=== PATIENT | female | born 1955 | race Caucasian/White ===

== ENCOUNTER 2019-03-01 14:54 | Emergency (ER) | payer OTHER ==
[~2019-03-01] VITALS: Ht 162.6 cm; Wt 98.4 kg
[2019-03-01 14:59] VITALS: BP 189/99
[2019-03-01 15:40] LABS: BASOPHILS % (AUTO) 0.5 % (0.0-2.0); EOSINOPHILS # (AUTO) 0.2 K/uL (0-0.4); EOSINOPHILS % (AUTO) 2.4 % (0.0-4.0); HEMATOCRIT 43.8 % (36-48); HEMOGLOBIN 14.7 g/dL (12.0-16.0); LYMPHOCYTES # (AUTO) 2.2 K/uL (2.5-16.5); LYMPHOCYTES % (AUTO) 29.3 % (20.5-51.1); MEAN CORPUSCULAR HEMOGLOBIN 29 pg (27-31); MEAN CORPUSCULAR HGB CONC 34 g/dL (33-37); MEAN CORPUSCULAR VOLUME 87.7 fL (80-94); MONOCYTES # (AUTO) 0.6 K/uL (0.8-1.0); MONOCYTES % (AUTO) 7.6 % (1.7-9.3); NEUTROPHILS # (AUTO) 4.5 K/uL (1.8-7.7); NEUTROPHILS % (AUTO) 60.2 % (42.2-75.2); PLATELET COUNT (AUTO) 337 K/uL (140-450); WHITE BLOOD COUNT (AUTO) 7.4 K/uL (4.8-10.8)
[2019-03-01 15:47] LABS: ANION GAP 11.6 (8-16); CARBON DIOXIDE 31.3 mmol/L (21-32); CREATININE 0.7 mg/dL (0.6-1.3); POTASSIUM 3.9 mmol/L (3.5-5.1)
[2019-03-01] MEDS ORDERED: METO25TE2 PO (15:58)
[2019-03-01] MEDS ORDERED: HYDR-39 PO (15:58)
[2019-03-02] MEDS ORDERED: ASPIRIN 325 MG TAB ONE (07:51)
[2019-03-02] MEDS: ASPIRIN 325 MG TABEC PO SCH (08:02)
[2019-03-02] MEDS ORDERED: HYDROCHLOROTHIAZIDE 25 MG TAB PO SCH (10:05)
[2019-03-02] MEDS ORDERED: LISINOPRIL 20 MG TAB PO SCH (10:05)
[2019-03-02] MEDS: LISINOPRIL 20 MG TAB PO ONE (10:37)
[2019-03-02] MEDS: HYDROCHLOROTHIAZIDE 25 MG TAB PO ONE (10:37)
[2019-03-02 12:00] VITALS: BP 150/75
== END 2019-03-02 12:00 | disposition short-term general hospital (02) ==
LOC: MED 14:54
DX: I63.9 Cerebral infarction, unspecified (principal); I10 Essential (primary) hypertension; Z79.899 Other long term (current) drug therapy
CPT/HCPCS: 36415; 70450; 80048; 82948; 84484; 85025; 93005; 99285

== ENCOUNTER 2020-12-05 13:22 | Emergency (ER) | payer BC, OTHER ==
[~2020-12-05] VITALS: Ht 165.1 cm; Wt 111.1 kg
[~2020-12-05 13:22] MED LIST: HYDR-39 PO; METO25TE2 PO
[2020-12-05 13:27] VITALS: BP 125/107
[2020-12-05] MEDS: NACL 0.9% 1,000 ML IV ONE (13:59)
[2020-12-05 14:07] LABS: BASOPHILS # (AUTO) 0.1 K/uL (0.00-0.22); BASOPHILS % (AUTO) 1.1 % (0.0-2.0); EOSINOPHILS # (AUTO) 0.2 K/uL (0-0.4); HEMATOCRIT 42.1 % (36-48); HEMOGLOBIN 14.1 g/dL (12.0-16.0); LYMPHOCYTES # (AUTO) 2.4 K/uL (2.5-16.5); LYMPHOCYTES % (AUTO) 29.2 % (20.5-51.1); MEAN CORPUSCULAR HEMOGLOBIN 29 pg (27-31); MEAN CORPUSCULAR HGB CONC 33 g/dL (33-37); MONOCYTES # (AUTO) 0.7 K/uL (0.8-1.0); MONOCYTES % (AUTO) 8.8 % (1.7-9.3); NEUTROPHILS # (AUTO) 4.7 K/uL (1.8-7.7); NEUTROPHILS % (AUTO) 57.9 % (42.2-75.2); PLATELET COUNT (AUTO) 334 K/uL (140-450); RED BLOOD CELL COUNT(AUTO) 4.84 MIL/uL (4.20-5.40); RED CELL DISTRIBUTION WIDTH 14.5 % (11.6-13.7); WHITE BLOOD COUNT (AUTO) 8.1 K/uL (4.8-10.8)
[2020-12-05 14:23] LABS: ALBUMIN 3.7 g/dL (3.4-5.0); ANION GAP 9.5 (8-16); CARBON DIOXIDE 30.3 mmol/L (21-32); CREATININE 0.9 mg/dL (0.6-1.3); POTASSIUM 3.8 mmol/L (3.5-5.1); TOTAL BILIRUBIN 0.5 mg/dL (0.0-1.0)
[2020-12-05] MEDS ORDERED: FLUO20TA35 PO (14:34)
[2020-12-05 14:53] VITALS: BP 125/107
== END 2020-12-05 14:50 | disposition home or self-care (01) ==
LOC: MED 13:22
DX: F32.9 Major depressive disorder, single episode, unspecified (principal); R42 Dizziness and giddiness; R53.1 Weakness; E11.9 Type 2 diabetes mellitus without complications; I10 Essential (primary) hypertension; Z79.899 Other long term (current) drug therapy
CPT/HCPCS: 36415; 80053; 85025; 93005; 96360; 99284; J7030

== ENCOUNTER 2022-01-05 15:38 | Inpatient (IN) | payer BC ==
[~2022-01-05] VITALS: Ht 165.1 cm; Wt 112.1 kg
[~2022-01-05 15:38] MED LIST changes: +FLUO20TA35 PO; +HYDR-2853 PO; -HYDR-39 PO
[2022-01-05 15:41] VITALS: BP 134/86
--- NOTE | 2022-01-05 15:48 | NUR ---
[facility] ALS TAKEN TO BED 2
--- NOTE | 2022-01-05 16:24 | NUR ---
66 y/o female, c/o increased sob, pt states she finished her current medications (azithromycin) for pneumonia which she was dx with 1 week ago. pt states her s/s were improving and today worsened. ems reports 02 saturation was 70% on room air. skin is pink/warm/dry. a&o x4 with even and steady gait. lungs wheezing bl, heart rate even and regular. patient positioned for comfort. hob elevated. bed down. ermd made aware of pt. pmh: pnuemonia, dm2, stroke 2019, anxiety, htn nka med:
--- NOTE | 2022-01-05 16:26 | NUR ---
zane swabbed at this time
[2022-01-05 16:31] LABS: BASOPHILS % (AUTO) 0.1 % (0.0-2.0); EOSINOPHILS % (AUTO) 0.1 % (0.0-4.0); HEMATOCRIT 35.7 % (36-48); HEMOGLOBIN 11.1 g/dL (12.0-16.0); LYMPHOCYTES # (AUTO) 1.3 K/uL (2.5-16.5); LYMPHOCYTES % (AUTO) 6.7 % (20.5-51.1); MEAN CORPUSCULAR HEMOGLOBIN 27 pg (27-31); MEAN CORPUSCULAR HGB CONC 31 g/dL (33-37); MEAN CORPUSCULAR VOLUME 87.7 fL (80-94); MONOCYTES # (AUTO) 0.8 K/uL (0.8-1.0); MONOCYTES % (AUTO) 4.1 % (1.7-9.3); NEUTROPHILS # (AUTO) 17.1 K/uL (1.8-7.7); PLATELET COUNT (AUTO) 277 K/uL (140-450); RED BLOOD CELL COUNT(AUTO) 4.07 MIL/uL (4.20-5.40); RED CELL DISTRIBUTION WIDTH 14.5 % (11.6-13.7); WHITE BLOOD COUNT (AUTO) 19.2 K/uL (4.8-10.8)
[2022-01-05 16:57] LABS: ALBUMIN 2.5 g/dL (3.4-5.0); ANION GAP 22.1 (8-16); CARBON DIOXIDE 20.4 mmol/L (21-32); CREATININE 1.8 mg/dL (0.6-1.3); POTASSIUM 4.5 mmol/L (3.5-5.1); TOTAL BILIRUBIN 1.4 mg/dL (0.0-1.0)
[2022-01-05] MEDS ORDERED: ATOR40TA40 PO (17:29)
[2022-01-05] MEDS ORDERED: FLUO10CA21 PO (17:29)
[2022-01-05] MEDS ORDERED: TRAZ-466 PO (17:29)
[2022-01-05] MEDS ORDERED: APIX5TAB PO (17:29)
[2022-01-05] MEDS ORDERED: ALPR0.5T20 PO (17:29)
[2022-01-05] MEDS ORDERED: AZITHROMYCIN 500 MG in DEXTROSE 5% 250 ML IV ONE (18:00)
[2022-01-05] MEDS ORDERED: cefTRIAXone 1,000 MG VIAL ONE ×2 (18:11→22:38)
[2022-01-05] MEDS ORDERED: AZITHROMYCIN 500 MG INJ VIAL IV ONE (18:21)
--- NOTE | 2022-01-05 18:39 | NUR ---
decreased 02 from 15L non rebreather saturation at 100% to 7L saturation at 99%. pt tolerating well, no respiratory distress or difficulty at this time reported from pt.
--- NOTE | 2022-01-05 19:22 | NUR ---
Pt report given to Slime DILLON. Transfer of care at this time.
--- NOTE | 2022-01-05 20:30 | NUR ---
TOOK OVER CARE OF PATIENT , RECIEVED REPORT FROM NACHO DILLON
--- NOTE | 2022-01-05 21:24 | NUR ---
66YR OLD FEMALE C/O SOB X 1DAY. PNA X1WEEK JUST FINISHED ABX. PT STATES SHE FELT THAT SHE WAS IMPROVING BUT TODAY SOB WAS WORSE TODAY. 15L NBR SP02 100%. PT ON BEDSIDE MONITOR . A&OX4. HOB ELEVATED BED AT LOWEST POSITION. PNA STROKE 2019 HTN
[2022-01-05] MEDS ORDERED: FUROSEMIDE 20 MG/2 ML VIAL IVP ONE (21:55)
--- NOTE | 2022-01-05 22:03 | NUR ---
SPOKE WITH PATIENTS DAUGHTER. ADVISED HER ON HER MOMS BED STATUS AND NO VISITORS BACK IN THE ED AT THE MOMENT.
[2022-01-05] MEDS ORDERED: MAGNESIUM OXIDE 400 MG TAB PO PRN (22:20)
[2022-01-05] MEDS ORDERED: POTASSIUM CHLORIDE 10 MEQ TABER PO PRN (22:20)
[2022-01-05] MEDS ORDERED: MORPHINE SULFATE 4 MG/ML SYR IVP PRN (22:20)
[2022-01-05] MEDS ORDERED: KCL 20 MEQ/WATER INJ PREMIX 200 ML IV PRN (22:20)
[2022-01-05] MEDS ORDERED: MAG SULF 2000 MG/WATER PREMIX 50 ML IV PRN (22:20)
[2022-01-05] MEDS ORDERED: ONDANSETRON 4 MG/2 ML VIAL IVP PRN (22:20)
--- NOTE | 2022-01-06 00:12 | NUR ---
Chart checked and completed.
--- NOTE | 2022-01-06 00:12 | NUR ---
Patient will be admitted to care of DR MORRIS. Admited to TELE. Will go to [id number]. Belongings list completed. Report to MARTHA DILLON.
[2022-01-06 00:15] VITALS: BP 132/60
--- NOTE | 2022-01-06 00:15 | NUR ---
GET THE PATIENT FROM ER NURSE , PATIENT IS LYING ON BED,NO ANY COMPLAIN OF SHORTNESS OF BREATH AT THIS TIME, PATIENT IS ALERT ORIENTED X 4, X2 SIDE RAILS ARE UP, PATIENT HAS RIGHT SIDE WEAKNESS, ALL FALL PRECAUTION MEASURE IN PLACE, CALL LIGHT IS WITHIN THE REACH, WILL CONTINUE TO MONITOR PATIENT.
[2022-01-06] MEDS: ACETAMINOPHEN 325 MG TAB PO PRN (01:04)
[2022-01-06] MEDS: HYDROcodone/APAP 5/325 MG 1 TAB TAB PO PRN (01:06)
--- NOTE | 2022-01-06 01:15 | NUR ---
PATIENT IS COMPLAINING OF HEADACHE , NORCO PO PRN IS GIVEN PER DOCTOR ORDER, VITAL SIGN IS WITHIN THE NORMAL RANGE, WILL RE ASSESS PAIN LEVEL IN HOUR, CALL LIGHT IS WITHIN THE REACH, WILL CONTINUE TO MONITOR PATIENT.
[2022-01-06 04:00] VITALS: BP 134/68
--- NOTE | 2022-01-06 04:19 | NUR ---
PATIENT IS LYING ON BED, VITAL SIGN IS WITHIN THE NORMAL RANGE, NO ANY COMPLAIN OF PAIN OR SHORTNESS OF BREATH AT THIS TIME, CALL LIGHT IS WITHIN THE REACH, WILL CONTINUE TO MONITOR PATIENT.
--- NOTE | 2022-01-06 06:09 | NUR ---
PATIENT IS LYING ON BED, ALL SCHEDULE MEDICATION IS GIVEN PER DOCTOR ORDER, CALL LIGHT IS WITHIN THE REACH, WILL CONTINUE TO MONITOR PATIENT.
[2022-01-06 07:13] LABS: BASOPHILS # (AUTO) 0.1 K/uL (0.00-0.22); BASOPHILS % (AUTO) 0.4 % (0.0-2.0); EOSINOPHILS # (AUTO) 0.1 K/uL (0-0.4); EOSINOPHILS % (AUTO) 0.6 % (0.0-4.0); HEMATOCRIT 35.4 % (36-48); HEMOGLOBIN 11.4 g/dL (12.0-16.0); LYMPHOCYTES # (AUTO) 2.3 K/uL (2.5-16.5); LYMPHOCYTES % (AUTO) 12.5 % (20.5-51.1); MEAN CORPUSCULAR HEMOGLOBIN 27 pg (27-31); MEAN CORPUSCULAR HGB CONC 32 g/dL (33-37); MEAN CORPUSCULAR VOLUME 84.3 fL (80-94); MONOCYTES # (AUTO) 0.8 K/uL (0.8-1.0); MONOCYTES % (AUTO) 4.2 % (1.7-9.3); NEUTROPHILS % (AUTO) 82.3 % (42.2-75.2); PLATELET COUNT (AUTO) 294 K/uL (140-450); RED CELL DISTRIBUTION WIDTH 14.4 % (11.6-13.7); WHITE BLOOD COUNT (AUTO) 18.1 K/uL (4.8-10.8)
--- NOTE | 2022-01-06 07:18 | NUR ---
GAVE THE REPORT TO MORNING NURSE DEEPAK FOR CONTINUOS OF CARE, PATIENT IS STABLE.
--- NOTE | 2022-01-06 07:30 | NUR ---
RECEIVED REPORT FROM SERVICE CASHIER NURSE FOR CONTINUITY OF CARE, POC DISCUSSED. PT IS RESTING IN BED ON 6L NC.PT IS ALERT AND ORIENTED X4, ABLE TO MAKE NEEDS KNOWN. ON FALL PRECAUTIONS, AWARE TO CALL FOR ASSISTANCE. CALL LIGHT WITHIN REACH. HAS A LEFT FOREARM 20G, SALINE LOCK. SKIN INTACT. ON TELE MONITOR. ALL SAFETY MEASURES IN PLACE, CALL LIGHT WITHIN REACH. WILL CONTINUE TO MONITOR.
[2022-01-06] MEDS ORDERED: DEXTROSE 50% 50 ML SYR IVP PRN (07:45)
--- NOTE | 2022-01-06 07:50 | NUR ---
NOTIFIED BY TELEPHONE MAINTENANCE MECHANIC OF PTS O2 NOT INCREASING GREATER THAN 82, NONREBREATHER PLACED ON PT. INCREASED O2 TO 88. RT DESIRE NOTIFIED, STATED THERE IS NO ORDER FOR RT FOR SERVICE, ORDER PLACED FOR RT SERVICE. WILL CONTINUE TO MONITOR.
--- NOTE | 2022-01-06 07:55 | NUR ---
O2 INCREASED TO 94%, PT DENIES SOB. CHEST RISING AND FALLING EVEN AND UNLABORED. WILL CONTINUE TO MONITOR.
[2022-01-06 08:00] VITALS: BP 128/64
[2022-01-06] MEDS: FUROSEMIDE 40 MG/4 ML VIAL IVP SCH ×2 (08:36→22:00)
--- NOTE | 2022-01-06 09:00 | NUR ---
NEPTALI MEDICATION ADMINISTERED PER MD ORDER, PT TOLERATED ADMINISTRATION. PT EDUCATION PROVIDED AND PT VERBALIZED UNDERSTANDING. IV PATENT AND INTACT TO RIGHT FOREARM. ON 15 L NON REBREATHER. PT ASSISTED TO BEDSIDE COMMODE, SOB UPON MOVING. PT PLACED BACK IN BED, SATURATION INCREASED TO 92%, SOB IMPROVED. PT PLACED ON PUREE WICK TO SUCTION, EDUCATED ON NOT TO AMBULATE UNTIL IMPROVEMENT ON BREATHING, PT VERBALIZED UNDERSTANDING. ALL SAFETY MEASURES IN PLACE, CALL LIGHT WITHIN REACH. WILL CONTINUE TO MONITOR.
--- NOTE | 2022-01-06 09:00 | NUR ---
PATIENT HAS BEEN SCREENED AND CATEGORIZED MODERATE NUTRITION RISK. PATIENT WILL BE SEEN WITHIN 3-5 DAYS OF ADMISSION. JOANNE SWIFT RD
[2022-01-06 09:20] LABS: ALBUMIN 2.2 g/dL (3.4-5.0); ANION GAP 13.5 (8-16); CARBON DIOXIDE 29.6 mmol/L (21-32); CREATININE 1.2 mg/dL (0.6-1.3); MAGNESIUM 1.7 mg/dL (1.8-2.4); POTASSIUM 4.1 mmol/L (3.5-5.1); TOTAL BILIRUBIN 0.9 mg/dL (0.0-1.0)
--- NOTE | 2022-01-06 11:30 | NUR ---
REHAB TECHNICIANALL DICKINSON AT BEDSIDE. PT IS STABLE ON 15L NONREBREATHER, SATING AT 98%. DENIES SOB.
[2022-01-06] MEDS: BLOOD GLUCOSE MONITORING 1 DEV DEV FS SCH ×3 (11:41→21:59)
[2022-01-06 12:00] VITALS: BP 131/64
--- NOTE | 2022-01-06 13:45 | NUR ---
RT PLACED PT ON HIGH FLOW WITH FIO2 AT 80%, PT REPORTS FEELING TIRED BUT NO SOB. O2 MONITOR AT 92%. PT REPORTS ALL OTHER NEEDS ARE BEING MET AT THIS TIME. CALL LIGHT WITHIN REACH, SAFETY MEASURES IN PLACE. WILL CONTINUE TO MONITOR.
--- NOTE | 2022-01-06 14:23 | NUR ---
REVIEWED WITH DR. JOHN BRIGGS; PAMELA SAMPLE REPORT; PULMONARY STATUS; USE OF HHN THERAPY; ACHIEVEMENT OF OXYGEN PERCENTAGE LEVEL; INITIATION OF HIGH FLOW NASAL VORBO DR. BRIGGS; ATIF HHN Q6 PRN FOR SOB; OXYGEN SATURATION GREATER THAN 90%
--- NOTE | 2022-01-06 14:30 | NUR ---
ROUNDED ON PT, PT IS RESTING WITH EYES SHUT ON HIGH FLOW, O2 SAT AT 91%. NO ACUTE DISTRESS OR SOB NOTED. ALL SAFETY MEASURES IN PLACE, CALL LIGHT WITHIN REACH. WILL CONTINUE TO MONITOR.
--- NOTE | 2022-01-06 15:30 | NUR ---
CLARIFIED ORDER FROM [facility] [employer] FOR US PER RADIOLOGIST REQUEST. CALLED RADIOLOGIST AND PROVIDED THEM WITH THE INFORMATION. STATED THEY WILL DO THE ULTRASOUND TONIGHT, THAT THE PT HAS TO BE NPO FOR 6 HOURS PRIOR TO THE SCAN, STATED THAT THEY WILL BE HERE AT 20:00 TO DO SCAN AND TO KEEP PT NPO. PT HAS BEEN EDUCATED ON THIS AND STATES THAT SHE UNDERSTANDS.
[2022-01-06 16:00] VITALS: BP 120/68
--- NOTE | 2022-01-06 18:00 | NUR ---
NEPTALI MEDICATION ADMINISTERED PER MD ORDER, PT TOLERATED ADMINISTRATION. PRN ANTIANXIETY MEDICATION ADMINISTERED PER MD ORDER. PT TOLERATED ADMINISTRATION. ALL SAFETY MEASURES IN PLACE, CALL LIGHT WITHIN REACH. WILL CONTINUE TO MONITOR.
[2022-01-06] MEDS: AZITHROMYCIN 500 MG in DEXTROSE 5% 250 ML IV SCH (18:10)
[2022-01-06] MEDS: ALPRAZolam 0.5 MG TAB PO PRN (18:10)
--- NOTE | 2022-01-06 18:30 | NUR ---
UPDATE PROVIDED TO PT DAUGHTER AND GRANDSON. ALL QUESTIONS HAS BEEN ANSWERED.
--- NOTE | 2022-01-06 18:51 | NUR ---
PT HAS REMAINED STABLE THROUGHOUT THE SHIFT, ALL SAFETY MEASURES IN PLACE. CALL LIGHT WITHIN REACH. WILL BE ENDORSED TO VICE PRESIDENT QUALITY ASSURANCE NURSE FOR CONTINUITY OF CARE.
[2022-01-06 20:00] VITALS: BP 123/77
--- NOTE | 2022-01-06 20:49 | NUR ---
GET THE REPORT FROM MORNING NURSE,PATIENT IS ALERT ORIENTED X4, PATIENT IS LYING ON BED, PATIENT IS RECEIVING HIGH FLOW OXYGEN 25 LITER, CALL LIGHT IS WITHIN THE REACH, WILL CONTINUE TO MONITOR PATIENT.
[2022-01-06] MEDS: ATORVASTATIN 20 MG TAB PO SCH (22:00)
[2022-01-06] MEDS: APIXABAN 2.5 MG TAB PO SCH (22:02)
[2022-01-06] MEDS: INSULIN LISPRO SLIDING SCALE 100 UNITS/ML VIAL SUBQ PRN (22:04)
--- NOTE | 2022-01-06 22:09 | NUR ---
PATIENT IS LYING ON BED, NO ANY COMPLAIN OF SHORTNESS OF BREATH OR PAIN AT THIS TIME, VITAL SIGN IS WITHIN THE NORMAL RANGE,PATIENT BLOOD SUGAR IS 155, 2 UNIT INSULIN IS GIVEN PER DOCTOR ORDER, ALL SCHEDULE MEDICATION IS GIVEN PER DOCTOR ORDER, CALL LIGHT IS WITHIN THE REACH, WILL CONTINUE TO MONITOR PATIENT.
[2022-01-07] VITALS (8 sets, daily range): BP systolic 90–136; BP diastolic 52–86
--- NOTE | 2022-01-07 00:59 | NUR ---
PATIENT IS LYING ON BED, NO ANY COMPLAIN OF PAIN OR SHORTNESS OF BREATH AT THIS TIME, VITAL SIGN IS WITHIN THE NORMAL RANGE, CALL LIGHT IS WITHIN THE REACH, WILL CONTINUE TO MONITOR PATIENT.
--- NOTE | 2022-01-07 03:36 | NUR ---
CHANGED THE PATIENT POSITION WITH HELP OF BOAT CLEANING SUPERVISOR,PATIENT IS LYING ON BED, NO ANY COMPLAIN OF PAIN OR SHORTNESS OF BREATH AT THIS TIME CALL LIGHT IS WITHIN THE REACH, WILL CONTINUE TO MONITOR PATIENT.
--- NOTE | 2022-01-07 04:07 | NUR ---
PATIENT IS COMPLAINING OF HEART BURN, MASSAGE DOCTOR DANNIE ABOUT PRN MEDICATION, WAITING FOR DOCTOR TO RESPONSE, CALL LIGHT IS WITHIN THE REACH, WILL CONTINUE TO MONITOR PATIENT.
--- NOTE | 2022-01-07 05:01 | NUR ---
PATIENT IS LYING ON BED,VITAL SIGN IS WITHIN THE NORMAL RANGE, NO ANY COMPLAIN OF PAIN R SHORTNESS OF BREATH AT THIS TIME, CALL LIGHT IS WITHIN THE REACH, WILL CONTINUE TO MONITOR PATIENT.
--- NOTE | 2022-01-07 05:28 | NUR ---
MSG DOCTOR DANNIE AGAIN ABOUT TO GET HEART BURN MEDICATION, STILL WAITING FOR DOCTOR TO RESPONSE, CALL LIGHT IS WITHIN THE REACH, WILL CONTINUE TO MONITOR PATIENT.
[2022-01-07] MEDS: BLOOD GLUCOSE MONITORING 1 DEV DEV FS SCH ×4 (06:32→21:42)
--- NOTE | 2022-01-07 06:54 | NUR ---
PATIENT BLOOD SUGAR IS 116, NO INSULIN COVERAGE IS NEEDED AT THIA TIME, CALL LIGHT IS WITHIN THE REACH, WILL CONTINUE TO MONITOR PATIENT.
[2022-01-07 07:14] LABS: BASOPHILS % (AUTO) 0.1 % (0.0-2.0); EOSINOPHILS # (AUTO) 0.4 K/uL (0-0.4); HEMATOCRIT 35.2 % (36-48); HEMOGLOBIN 11.5 g/dL (12.0-16.0); LYMPHOCYTES # (AUTO) 1.6 K/uL (2.5-16.5); LYMPHOCYTES % (AUTO) 11.5 % (20.5-51.1); MEAN CORPUSCULAR HEMOGLOBIN 28 pg (27-31); MEAN CORPUSCULAR HGB CONC 33 g/dL (33-37); MEAN CORPUSCULAR VOLUME 85.3 fL (80-94); MONOCYTES % (AUTO) 6.7 % (1.7-9.3); NEUTROPHILS # (AUTO) 11.2 K/uL (1.8-7.7); NEUTROPHILS % (AUTO) 78.7 % (42.2-75.2); PLATELET COUNT (AUTO) 294 K/uL (140-450); RED BLOOD CELL COUNT(AUTO) 4.12 MIL/uL (4.20-5.40); RED CELL DISTRIBUTION WIDTH 13.8 % (11.6-13.7); WHITE BLOOD COUNT (AUTO) 14.2 K/uL (4.8-10.8)
[2022-01-07 07:25] LABS: ALBUMIN 2.1 g/dL (3.4-5.0); CARBON DIOXIDE 35.9 mmol/L (21-32); CREATININE 0.9 mg/dL (0.6-1.3); MAGNESIUM 1.9 mg/dL (1.8-2.4); POTASSIUM 3.9 mmol/L (3.5-5.1); TOTAL BILIRUBIN 1.2 mg/dL (0.0-1.0)
--- NOTE | 2022-01-07 07:36 | NUR ---
GAVE THE REPORT TO MORNING NURSE ANDI FOR CONTINUOS OF CARE, PATIENT IS STABLE.
[2022-01-07] MEDS: FUROSEMIDE 40 MG/4 ML VIAL IVP SCH ×2 (08:47→21:00)
[2022-01-07] MEDS: APIXABAN 2.5 MG TAB PO SCH ×2 (08:49→21:32)
[2022-01-07] MEDS: ALPRAZolam 0.5 MG TAB PO PRN (08:50)
[2022-01-07] MEDS: lisinopriL 20 MG TAB PO SCH (08:50)
[2022-01-07] MEDS: FLUoxetine 20 MG CAP PO SCH (08:50)
[2022-01-07 09:07] LABS: HEPATITIS A ANTIBODY IGM Negative (Negative); HEPATITIS B CORE AB TOTAL Negative (Negative); HEPATITIS B SURFACE ANTIBODY Non Reactive (.); HEPATITIS B SURFACE ANTIGEN Negative (Negative)
[2022-01-07] MEDS: INSULIN LISPRO SLIDING SCALE 100 UNITS/ML VIAL SUBQ PRN (12:23)
--- NOTE | 2022-01-07 12:46 | NUR ---
LATE ENTRY- AZITHROMYCIN DISCONTINUED AT 0012.
[2022-01-07] MEDS: ALBUTEROL SULFATE/IPRATROPIU 3 ML SOL IH PRN (14:33)
[2022-01-07] MEDS: AZITHROMYCIN 500 MG in DEXTROSE 5% 250 ML IV SCH (19:00)
--- NOTE | 2022-01-07 19:52 | NUR ---
ENDORSE PATIENT TO PM SHIFT NURSE THAT PATIENT IS REST ON BED ON HIGH FIO 40. IV ANTIBIOTIC INFUSING. DAUGHTER AT BEDSIDE.
[2022-01-07] MEDS: ATORVASTATIN 20 MG TAB PO SCH (21:35)
--- NOTE | 2022-01-07 23:57 | NUR ---
PT PIV INFILTRATED AND WE COULD NOT CONTINUE WITH CT SCAN, MULTIPLE IV ATTEMPTS WERE DONE DURING THE DAY SHIFT AND PT IS IN ALOT OF PAIN, PT STATED " I AM IN ALOT OF PAIN AND I DO NOT WANT ANY OTHER IV'S RIGHT NOW". SO, I PAGED MD SOLUTION DEVELOPER TO POSSIBLY SEE IF WE CAN POSSIBLY HAVE PATIENT RECEIVE A PICC LINE, PENDING MD CALL BACK. CHARGE NURSE MADE AWARE.
[2022-01-08] VITALS: BP 121/69
--- NOTE | 2022-01-08 00:05 | NUR ---
SPOKE TO HISTORICAL INTERPRETER MD; ROSS VOGT ON THE PHONE AND EXPLAINED TO HIM ABOUT THE SITUATION OF NOT BEING ABLE TO HAVE IV ACCESS FOR THE PATIENT AND HOW THE PATIENT NEEDS A CT SCAN. HE STATED AND GAVE AN ORDER THAT IT IS OKAY TO GO AHEAD AND INSERT A MIDLINE TOMORROW MORNING (01/08/22). I WILL NOTIFY ONCOMING DAY SHIFT RN.
[2022-01-08 04:00] VITALS: BP 122/63
[2022-01-08] MEDS: BLOOD GLUCOSE MONITORING 1 DEV DEV FS SCH ×4 (06:35→20:53)
[2022-01-08 07:11] LABS: BASOPHILS % (AUTO) 0.1 % (0.0-2.0); EOSINOPHILS # (AUTO) 1.1 K/uL (0-0.4); EOSINOPHILS % (AUTO) 8.9 % (0.0-4.0); HEMOGLOBIN 11.7 g/dL (12.0-16.0); LYMPHOCYTES # (AUTO) 1.6 K/uL (2.5-16.5); LYMPHOCYTES % (AUTO) 12.3 % (20.5-51.1); MEAN CORPUSCULAR HEMOGLOBIN 28 pg (27-31); MEAN CORPUSCULAR HGB CONC 33 g/dL (33-37); MEAN CORPUSCULAR VOLUME 84.7 fL (80-94); MONOCYTES # (AUTO) 0.8 K/uL (0.8-1.0); MONOCYTES % (AUTO) 6.5 % (1.7-9.3); NEUTROPHILS # (AUTO) 9.2 K/uL (1.8-7.7); NEUTROPHILS % (AUTO) 72.2 % (42.2-75.2); PLATELET COUNT (AUTO) 288 K/uL (140-450); RED BLOOD CELL COUNT(AUTO) 4.25 MIL/uL (4.20-5.40); RED CELL DISTRIBUTION WIDTH 14.5 % (11.6-13.7); WHITE BLOOD COUNT (AUTO) 12.7 K/uL (4.8-10.8)
--- NOTE | 2022-01-08 07:42 | NUR ---
PT SATURATING 99%, WILL REMOVE NON-REBREATHER, AND KEEP PT ON HFNC AT 40 L 100%, WILL TITRATE TOLERATED, WILL CONTINUE TO MONITOR
[2022-01-08 08:00] VITALS: BP 123/72
[2022-01-08] MEDS: FUROSEMIDE 40 MG/4 ML VIAL IVP SCH ×2 (08:51→20:46)
[2022-01-08] MEDS: FLUoxetine 20 MG CAP PO SCH (08:51)
[2022-01-08] MEDS: lisinopriL 20 MG TAB PO SCH (08:52)
[2022-01-08] MEDS: APIXABAN 2.5 MG TAB PO SCH ×2 (08:55→20:44)
[2022-01-08 12:00] VITALS: BP 125/61
--- NOTE | 2022-01-08 12:00 | NUR ---
CONTACTED BY RN REGARDING CT FOR PT. PLACED PT ON 15L NRB AT THIS TIME AND REMOVED THE HIGH FLOW NASAL CANNULA, THE HIGH FLOW IS NOT ABLE TO TRANSPORT WITH THE PATIENT. PT MAINTAINED SATURATIONS ABOVE 90%. WILL CONTINUE TO TITRATE HIGH FLOW WHEN PATIENT RETURNS FROM SURGERY.
[2022-01-08 12:24] LABS: ALBUMIN 2.1 g/dL (3.4-5.0); ANION GAP 7.8 (8-16); CARBON DIOXIDE 36.7 mmol/L (21-32); CREATININE 0.8 mg/dL (0.6-1.3); POTASSIUM 3.5 mmol/L (3.5-5.1)
[2022-01-08 14:35] LABS: MAGNESIUM 2.1 mg/dL (1.8-2.4)
--- NOTE | 2022-01-08 14:35 | NUR ---
01/08/22 RD INITIAL ASSESSMENT COMPLETED PLEASE REFER TO NUTRITION ASSESSMENT UNDER CARE ACTIVITY FOR ESTIMATED NUTRITIONAL NEEDS. 1. CONTINUE CARDIAC FLUID 1500 DIET TOLERATED 2. WILL MONITOR PO INTAKE AND NUTRITION RELATED LAB VALUES 3. RD TO FOLLOW-UP 7 DAYS, LOW RISK REVIEWED BY JOANNE SWIFT RD
[2022-01-08 16:00] VITALS: BP 126/72
[2022-01-08] MEDS: INSULIN LISPRO SLIDING SCALE 100 UNITS/ML VIAL SUBQ PRN ×2 (17:22→20:52)
[2022-01-08] MEDS: ALBUTEROL SULFATE/IPRATROPIU 3 ML SOL IH PRN (19:36)
[2022-01-08] MEDS: AZITHROMYCIN 500 MG in DEXTROSE 5% 250 ML IV SCH (19:39)
[2022-01-08 20:00] VITALS: BP 123/66
[2022-01-08] MEDS: ATORVASTATIN 20 MG TAB PO SCH (20:45)
[2022-01-09] VITALS (7 sets, daily range): BP systolic 122–136; BP diastolic 62–80
[2022-01-09] MEDS: BLOOD GLUCOSE MONITORING 1 DEV DEV FS SCH ×4 (06:37→21:52)
--- NOTE | 2022-01-09 07:10 | NUR ---
RECEIVED REPORT FROM NIGHTSHIFT NURSE EUNICE FOR CONTINUITY OF CARE. PT IN STABLE CONDITION, CURRENTLY SLEEPING. A/OX4, BREATHING EVEN, REGULAR AND UNLABORED ON HIFLO NC 40L AT 80% FIO2. PT HAS PUREWICK TO SUCTION. PT CONTINENT OF THE BOWELS. SKIN IS INTACT, GENERAL WEAKNESS WITH INCREASED DIFFICULTY AMBULATING. PT DENIES PAIN AT THIS TIME, PT IN STABLE CONDITION.
[2022-01-09] MEDS: ALBUTEROL SULFATE/IPRATROPIU 3 ML SOL IH PRN ×2 (07:23→19:19)
[2022-01-09 07:28] LABS: BASOPHILS % (AUTO) 0.1 % (0.0-2.0); EOSINOPHILS # (AUTO) 0.7 K/uL (0-0.4); EOSINOPHILS % (AUTO) 6.1 % (0.0-4.0); HEMATOCRIT 36.1 % (36-48); HEMOGLOBIN 11.6 g/dL (12.0-16.0); LYMPHOCYTES # (AUTO) 1.9 K/uL (2.5-16.5); LYMPHOCYTES % (AUTO) 16.5 % (20.5-51.1); MEAN CORPUSCULAR HEMOGLOBIN 28 pg (27-31); MEAN CORPUSCULAR HGB CONC 32 g/dL (33-37); MEAN CORPUSCULAR VOLUME 85.3 fL (80-94); MONOCYTES % (AUTO) 9.1 % (1.7-9.3); NEUTROPHILS # (AUTO) 7.7 K/uL (1.8-7.7); NEUTROPHILS % (AUTO) 68.2 % (42.2-75.2); PLATELET COUNT (AUTO) 257 K/uL (140-450); RED BLOOD CELL COUNT(AUTO) 4.23 MIL/uL (4.20-5.40); RED CELL DISTRIBUTION WIDTH 14.5 % (11.6-13.7); WHITE BLOOD COUNT (AUTO) 11.3 K/uL (4.8-10.8)
[2022-01-09 08:35] LABS: ALBUMIN 1.9 g/dL (3.4-5.0); CARBON DIOXIDE 36.8 mmol/L (21-32); CREATININE 0.8 mg/dL (0.6-1.3); MAGNESIUM 2.2 mg/dL (1.8-2.4); POTASSIUM 3.8 mmol/L (3.5-5.1); TOTAL BILIRUBIN 0.9 mg/dL (0.0-1.0)
[2022-01-09] MEDS: lisinopriL 20 MG TAB PO SCH (09:02)
[2022-01-09] MEDS: FUROSEMIDE 40 MG/4 ML VIAL IVP SCH ×2 (09:02→21:43)
[2022-01-09] MEDS: FLUoxetine 20 MG CAP PO SCH (09:03)
[2022-01-09] MEDS: APIXABAN 2.5 MG TAB PO SCH ×2 (09:11→21:23)
--- NOTE | 2022-01-09 11:24 | NUR ---
PT. WITH LOW EDWIN SCALE AT MODERATE TO HIGH RISK, CONTINUE TO FOLLOW PRESSURE INJURY PREVENTION INTERVENTIONS. -POSITIONING: TURN AND REPOSITION PATIENT Q 2H OR SOONER USE PILLOWS TO KEEP BONY PROMINENCES FROM DIRECT CONTACT WITH SURFACES USE REPOSITIONING WEDGES TO PROVIDE 30-DEGREE ANGLE FOR SIDE LYING POSITIONS OFFLOADING OR FOAM DRESSING TO ALL TUBING TO PREVENT MEDICAL DEVICES RELATED PRESSURE INJURY -RE-EVALUATING AND MANAGING INCONTINENCE MONITOR SKIN CONDITION DURING POSITION CHANGE DO NOT MASSAGE REDNESS, BONY PROMINENCES FREQUENT ELIE-CARE AND PROVIDE BARRIER CREAMS PRN IF SOILING MOISTURE CONTROL BY OFFER BED SANDERS/URINAL /ABSORBENT PAD TO WICK AND HOLD MOISTURE KEEP SKIN DRY AND PROTECT FROM FRICTION -MANAGE FRICTION/SHEAR/MOBILITY KEEP HOB AT THE LOWEST LEVEL OF ELEVATION NO MORE THAN 30 DEGREE UNLESS OTHERWISE CONTRAINDICATED USE LIFT SHEET OR TRANSFER DEVICE TO MOVE PATIENT AND PREVENT LATERAL SHEER. PROTECT HEELS, ELBOWS BONY PROMINENCES WITH SKIN BERRIES OR FOAM DRESSING IF EXPOSED TO FRICTION OFFLOAD BILATERAL HEELS BY PLACING PILLOWS UNDER CALVES AT ALL TIMES, UNLESS OTHERWISE CONTRAINDICATED -PRESSURE REDISTRIBUTION SURFACE THERAPY FRANCESCO ISOFLEX MATTRESS -NUTRITION: PLEASE FOLLOW RD RECOMMENDATIONS AND OFFER NUTRITION SUPPLEMENTS IF ORDERED. PLEASE CONTACT WOUND CARE NURSE FOR ANY QUESTION AND CHANGE OF WOUND CONDITION
[2022-01-09] MEDS: methylPREDNISolone SS 40 MG/ML VIAL IVP SCH ×2 (12:26→21:36)
[2022-01-09] MEDS: INSULIN LISPRO SLIDING SCALE 100 UNITS/ML VIAL SUBQ PRN ×3 (12:37→21:49)
--- NOTE | 2022-01-09 13:14 | NUR ---
DC PLANNING: PATIENT HAS AN ORDER FOR LT[facility] FOR O2 MANAGEMENT. CALLED [facility] SPOKE WITH MARY ALICE STATED NEEDS THE RT ASSESSMENT AND CLINICALS FOR [facility]IM[facility] FACILITY SUPERVISOR TO REVIEW IT. FAXED ALL PAPERWORK TO [facility] CM TO FOLLOW Addendum: 01/12/22 at 1241 by Pauly Miner RN DC PLANNING: PATIENT IS STILL ON HF 40L/NC FIO2 95%. CALLED [facility] SPOKE WITH [facility], STILL NO BED AVAILABLE. FAXED LATEST CLINICALS. CM TO FOLLOW Addendum: 01/12/22 at 162 by Pauly Miner RN DC PLANNING: CALLED PT DAUGHTER [phone] SPOKE WITH NIDIA REGARDING THE POSSIBLE TRANSFER TO LTAC WHICH IS ALONSO PER [facility]IDIA AGREED AND OK WITH TD GUPT[facility]. PER [facility] AT [place] NO BED AVAILABLE AT THIS TIME. CM TO FOLLOW. Addendum: 01/14/22 at 1358 by Pauly Miner RN DC PLANNING: PER DR PHILIPPE ORDER PATIENT GOT TRANSFERRED TO ICU ON 01/13 AT 18:38 FOR CLOSE MONITORING. STILL ON HF40L/NC FIO2 95% FOR POSSIBLE INTUBATION. DR PHILIPPE DISCUSSED WITH PATIENT AND HER DAUGHTER. LTAC HAS BEEN HELD UNTIL FIO2 GOES DOWN TO 50%. CM TO FOLLOW Addendum: 01/15/22 at 1427 by Pauly Miner RN DC PLANNING: CALLED [facility] SPOKE WITH [facility] STATED STILL NO BED AVAILABLE AT THIS TIME. CALLED [facility] SPOKE WITH JOSIAH CHRISTIE STATED FIO2 IS STILL 95% AND NOT STABLE FOR TRANSFER AND NOT SURE THAT HER LABORATORY ANIMAL FACILITY SUPERVISOR IS APPROVING IT. PATIENT IS STILL ON HF 40L/NC REMAINS ICU. CM TO FOLLOW Addendum: 01/19/22 at 1336 by Pauly Miner RN DC PLANNING: CALLED [facility] AND SPOKE WITH JOSIAH CHRISTIE STATED HER LABORATORY ANIMAL FACILITY SUPERVISOR DENIED THE LTAC BECAUSE OF FIO2 IS 100%. DISCUSSED WITH DR HARTMAN STATED WILL TALK TO FAMILY AGAIN FOR POSSIBLE INTUBATION OR TRACH. CM TO FOLLOW Addendum: 01/20/22 at 1051 by Pauly Miner RN DC PLANNING: REMAINS ICU FOR CLOSE MONITORING HF 40L/NC FIO2 90%. CONTINUE IV ABC VANCOMYCIN ZOSYN AND FLUCONAZOLE . POOR PROGNOSIS. PULMO,ID AND CARDIO FOLLOWING. CM TO FOLLOW Addendum: 01/21/22 at 1141 by Pauly Miner RN DC PLANNING: REMAINS IN ICU ON BIPAP FIO2 100% SATING 92%. PER DR PHILIPPE FAMILY MEETING TODAY AND MAKE A FINAL DECISION ON CODE STATUS. CM TO FOLLOW Addendum: 01/22/22 at 1200 by Pauly Miner RN DC PLANNING: PATIENT DEVELOPED BILATERAL PNEUMOTHORAX LAS NIGHT WHICH REQUIRED RIGHT CHEST TUBE PLACEMENT AND INTUBATED SEDATED FIO2 100% ON LEVOPHED, PROPOFOL, FENTANYL AND PRECEDEX DRIPS. FAMILY AT THE BED SIDE. PRATIK TO FOLLOW
[2022-01-09] MEDS: AZITHROMYCIN 500 MG in DEXTROSE 5% 250 ML IV SCH (18:06)
--- NOTE | 2022-01-09 19:15 | NUR ---
ENDORSED PT TO NIGHTSHIFT NURSE XUAN FOR CONTINUITY OF CARE. PT IN STABLE CONDITION.
--- NOTE | 2022-01-09 19:30 | NUR ---
RECEIVED REPORT FROM MASHA DILLON DAYSHIFT NURSE, PT SITTING UP IN BED SHE IS AOX4, SHE HAS A HI FLOW 40LITERS AT 80%. SHE HAS A RIGHT UPPER PIC LINE RUNNING AT 3MLHR TO KVO. PT ALSO HAS A RIGHT INDEX FINGER IV THAT IS SALINE LOCKED. PT USING PUREWICK AND WAS ALSO PLACED ON BEDPAN REQUESTED. HOB IS UP 45% ALL UNIVERSAL FALLS PRECAUTIONS IN PLACE.
--- NOTE | 2022-01-09 19:39 | NUR ---
191 PT WAS EATING AND STARTED COUGHING, FAMILY REQUESTED RT. BREATHING TX GIVEN, BREATHING IMPROVED. O2 SATS 99%, HR 79, PT ON HIGH FLOW AT 80%, LITER FLOW 40.
--- NOTE | 2022-01-09 20:00 | NUR ---
ROUNDS DONE HEAD TO TOE ASSESSMENT DONE. EYES PERRLA, LUNG SOUNDS DIMINISHED, ABDOMEN SOFT NONTENDER AND BS PRESENT. PT DENIES ANY PAIN AT THIS TIME. ALL ORDERED PRECAUTIONS IN PLACE.
[2022-01-09] MEDS: ATORVASTATIN 20 MG TAB PO SCH (21:30)
--- NOTE | 2022-01-09 22:00 | NUR ---
ALL SCHEDULED/DUE MEDS GIVEN ORDERED. IV RUNNING TO KVO PT CHANGED AND REPOSITIONED IN BED.HOB UP 45%. PT C/O OF GERD AND CONSTIPATION WILL CONTACT MD FOR NEW ORDERS.
--- NOTE | 2022-01-09 22:30 | NUR ---
SPOKE WITH DAUGHTER AND SHE WAS UPDATED REQUESTED. TENDER COORDINATOR DR. ERIC LIMA ORDERED MEDICATION FOR GERD AND CONSTIPATION. NEW ORDERS NOTED.
[2022-01-10] VITALS: BP 127/70
--- NOTE | 2022-01-10 00:30 | NUR ---
ROUNDS AND VITALS DONE, V/S STABLE PT REPOSITIONED IN BED ALL FALLS PRECAUTIONS IN PLACE. HOB UP 35%. FLU AND NASAL SWAB DONE.
--- NOTE | 2022-01-10 01:30 | NUR ---
PT IS NEGATIVE FOR FLU A AND B.
--- NOTE | 2022-01-10 03:00 | NUR ---
ROUNDS DONE,. PT IS ASLEEP. ALL FALLS PRECAUTIONS IN PLACE.
[2022-01-10 04:00] VITALS: BP 140/81
[2022-01-10] MEDS: INSULIN LISPRO SLIDING SCALE 100 UNITS/ML VIAL SUBQ PRN ×5 (05:44→20:58)
[2022-01-10] MEDS: BLOOD GLUCOSE MONITORING 1 DEV DEV FS SCH ×4 (05:54→20:53)
[2022-01-10] MEDS: methylPREDNISolone SS 40 MG/ML VIAL IVP SCH ×3 (05:54→20:38)
--- NOTE | 2022-01-10 06:30 | NUR ---
AM CARE GIVEN, PT FINGERSTICK IS 171, SHE WAS GIVEN 2 UNITS HUMALOG PER S/S. IV RUNNING N/S TO KVO. ALL FALLS PRECAUTIONS IN PLACE.
--- NOTE | 2022-01-10 07:05 | NUR ---
RECEIVED REPORT FROM NIGHTSHIFT NURSE XUAN FOR CONTINUITY OF CARE. PT IN STABLE CONDITION, CURRENTLY SLEEPING. A/OX4, BREATHING EVEN, REGULAR AND UNLABORED ON HIFLO NC 40L AT 80% FIO2. PT HAS PUREWICK TO SUCTION. PT CONTINENT OF THE BOWELS. SKIN IS INTACT, GENERAL WEAKNESS WITH INCREASED DIFFICULTY AMBULATING. PT DENIES PAIN AT THIS TIME, PT IN STABLE CONDITION.
--- NOTE | 2022-01-10 07:30 | NUR ---
RECEIVED PT ON HFNC AT 40L FLOW AND 80% FIO2. PT SATURATION 90%, CLEAR BREATH SOUNDS AND TALKING WITH US. NO DISTRESS NOTED.
[2022-01-10 07:38] LABS: BASOPHILS % (AUTO) 0.1 % (0.0-2.0); HEMOGLOBIN 12.2 g/dL (12.0-16.0); LYMPHOCYTES # (AUTO) 0.9 K/uL (2.5-16.5); LYMPHOCYTES % (AUTO) 9.1 % (20.5-51.1); MEAN CORPUSCULAR HEMOGLOBIN 27 pg (27-31); MEAN CORPUSCULAR HGB CONC 32 g/dL (33-37); MEAN CORPUSCULAR VOLUME 85.3 fL (80-94); MONOCYTES # (AUTO) 0.2 K/uL (0.8-1.0); NEUTROPHILS # (AUTO) 8.7 K/uL (1.8-7.7); NEUTROPHILS % (AUTO) 88.8 % (42.2-75.2); PLATELET COUNT (AUTO) 242 K/uL (140-450); RED BLOOD CELL COUNT(AUTO) 4.45 MIL/uL (4.20-5.40); RED CELL DISTRIBUTION WIDTH 14.5 % (11.6-13.7); WHITE BLOOD COUNT (AUTO) 9.8 K/uL (4.8-10.8)
[2022-01-10 08:00] VITALS: BP 140/81
[2022-01-10 08:26] LABS: ALBUMIN 2.1 g/dL (3.4-5.0); ANION GAP 11.1 (8-16); CREATININE 0.9 mg/dL (0.6-1.3); MAGNESIUM 2.4 mg/dL (1.8-2.4); POTASSIUM 4.1 mmol/L (3.5-5.1); TOTAL BILIRUBIN 0.8 mg/dL (0.0-1.0)
[2022-01-10] MEDS: FUROSEMIDE 40 MG/4 ML VIAL IVP SCH ×2 (08:26→20:37)
[2022-01-10] MEDS: SENNA 8.6 MG TAB PO SCH ×2 (08:26→20:42)
[2022-01-10] MEDS: lisinopriL 20 MG TAB PO SCH (08:26)
[2022-01-10] MEDS: PANTOPRAZOLE 40 MG TABEC PO SCH (08:27)
[2022-01-10] MEDS: DOCUSATE SODIUM 100 MG GELCAP PO SCH (08:27)
[2022-01-10] MEDS: FLUoxetine 20 MG CAP PO SCH (08:27)
[2022-01-10] MEDS: APIXABAN 2.5 MG TAB PO SCH ×2 (08:39→20:41)
[2022-01-10 12:00] VITALS: BP 126/66
[2022-01-10] MEDS: HYDROcodone/APAP 5/325 MG 1 TAB TAB PO PRN (12:54)
--- NOTE | 2022-01-10 12:55 | NUR ---
PT COMPLAINED OF HEADACHE PAIN 11/21. PRN NORCO GIVEN.
--- NOTE | 2022-01-10 13:00 | NUR ---
PT SATURATION DROPPED TO 86%-87%. ON 80% FIO2. INCREASED FI02 TO 85%. PT SATURATION IS 91%.
[2022-01-10 16:00] VITALS: BP 137/75
[2022-01-10] MEDS: AZITHROMYCIN 500 MG in DEXTROSE 5% 250 ML IV SCH (18:55)
--- NOTE | 2022-01-10 19:15 | NUR ---
ENDORSED PT TO NIGHTSAZFT NURSE [place]. PT IN STABLE CONDITION.
--- NOTE | 2022-01-10 19:16 | NUR ---
RECEIVED REPORT FROM MORNING SHIFT NURSE. PT IS SITTING ON THE THE BED TOGETHER WITH FAMILY AT BED SIDE. PT IS AOX4, WITH NC OF 40L. PT IS ON CARDIAC DIET AND HAS 2X MIDLINE ON RIGHT UPPER EXTREMITY. NO S/S OF DISTRESS NOTED AND NO COMPLAIN OF PAIN. ALL SAFETY MEASURES IMPLEMENTED. CALL LIGHT WITHIN REACH, BED IS ON LOW POSITION AND BED WHEELS LOCKED.
[2022-01-10 20:00] VITALS: BP 121/66
[2022-01-10] MEDS: ATORVASTATIN 20 MG TAB PO SCH (20:43)
--- NOTE | 2022-01-10 20:43 | NUR ---
ALL SCHEDULED MEDICATION WAS GIVEN TO PT PER MD ORDER. PT TOLERATED IT WELL. ALL SAFETY MEASURES IMPLEMENTED. CALL LIGHT WITHIN REACH, BED WHEELS LOCKED AND BED IN LOW POSITION.
[2022-01-10] MEDS: ACETAMINOPHEN 325 MG TAB PO PRN (20:58)
--- NOTE | 2022-01-10 20:58 | NUR ---
PT COMPLAIN OF HEADACHE. PRN PAIN MEDICATION WAS GIVEN TO PT. PT TOLERATE IT WELL. ALL SAFETY MEASURES IMPLEMENTED. CALL LIGHT WITHIN REACH, BED WHEELS ON LOCKED AND BED IN LOW POSITION.
--- NOTE | 2022-01-10 22:00 | NUR ---
PT IS ON SLEEP. CHEST RISE AND FALL SYMMETRICALLY NOTED SATING AT 93%. ALL SAFETY MEASURES IMPLEMENTED. CALL LIGHT WITHIN REACH, BED WHEELS LOCKED AND BED IN LOW POSITION.
[2022-01-11] VITALS: BP 126/71
--- NOTE | 2022-01-11 | NUR ---
PT VS BP- 126/71, RR-21 P-82, T-98.5 SATING AT 93%. NO S/S OF RESPIRATORY DISTRESS NOTED. RESPIRATION IS EVEN AND UNLABORED. NO COMPLAIN OF PAIN. ALL SAFETY MEASURES IMPLEMENTED. CALL LIGHT WITHIN REACH, BED WHEELS LOCKED AND BED IN LOW POSITION.
[2022-01-11] MEDS: ALPRAZolam 0.5 MG TAB PO PRN ×2 (02:39→18:26)
--- NOTE | 2022-01-11 02:39 | NUR ---
PT REQUESTED FOR HER ANTI-ANXIETY MEDICATION. PRN ANTI-ANXIETY MEDICATION WAS GIVEN TO PT PER MD ORDER. PT TOLERATED IT WELL. ALL SAFETY MEASURES IMPLEMENTED. CALL LIGHT WITHIN REACH, BED WHEELS ON LOCKED AND BED IN LOW POSITION.
[2022-01-11 04:00] VITALS: BP 146/84
[2022-01-11] MEDS: methylPREDNISolone SS 40 MG/ML VIAL IVP SCH ×3 (04:57→22:00)
--- NOTE | 2022-01-11 04:57 | NUR ---
SCHEDULE MEDICATION WAS GIVEN TO PT PER MD ORDER. PT WAS ALSO CLEANED AND MORNING CARE WAS DONE. ALL SAFETY MEASURES IMPLEMENTED. CALL LIGHT WITHIN REACH, BED WHEEL LOCKED AND BED IN LOW POSITION.
[2022-01-11] MEDS: BLOOD GLUCOSE MONITORING 1 DEV DEV FS SCH ×4 (06:37→21:09)
[2022-01-11] MEDS: INSULIN LISPRO SLIDING SCALE 100 UNITS/ML VIAL SUBQ PRN ×4 (06:38→21:14)
--- NOTE | 2022-01-11 06:38 | NUR ---
PT BLOOD GLUCOSE IS 167. HUMALOG INSULIN 2 UNITS WAS GIVEN TO MD PER MD ORDER. PT TOLERATED IT WELL. ALL SAFETY MEASURES IMPLEMENTED. CALL LIGHT WITHIN REACH, BED WHEELS LOCKED AND BED IN LOW POSITION.
--- NOTE | 2022-01-11 07:16 | NUR ---
PT IS STABLE. ENDORSED PT TO MORNING SHIFT NURSE FOR CONTINUITY OF CARE.
--- NOTE | 2022-01-11 07:30 | NUR ---
RECEIVED REPORT FROM NIGHTSNDFT RN. PT A/O X4. DENIES PAIN/CHEST PAIN. SOB NOTED. USE OF ACCESSORY MUSCLES. ON 40L HIGH FLOW, FIO2 @ 85%. O2 SATURATION @ 94%. CARDIAC DIET. PUREWICK IN PLACE. ARIC MIDLINE DOUBLE LUMEN DRESSING C/D/I. NEEDS ALL MET AT THIS TIME. SAFETY MEASURES IN PLACE. POC DISCUSSED.
[2022-01-11] MEDS: ALBUTEROL SULFATE/IPRATROPIU 3 ML SOL IH PRN ×3 (07:35→16:49)
[2022-01-11 08:00] VITALS: BP 148/95
[2022-01-11] MEDS: APIXABAN 2.5 MG TAB PO SCH ×2 (09:56→21:01)
[2022-01-11] MEDS: PANTOPRAZOLE 40 MG TABEC PO SCH (09:58)
[2022-01-11] MEDS: lisinopriL 20 MG TAB PO SCH (09:58)
[2022-01-11] MEDS: SENNA 8.6 MG TAB PO SCH ×2 (09:59→20:59)
[2022-01-11] MEDS: FUROSEMIDE 40 MG/4 ML VIAL IVP SCH ×2 (09:59→21:59)
[2022-01-11] MEDS: FLUoxetine 20 MG CAP PO SCH (09:59)
[2022-01-11] MEDS: DOCUSATE SODIUM 100 MG GELCAP PO SCH (09:59)
[2022-01-11 11:14] LABS: ANION GAP 8.6 (8-16); CREATININE 0.9 mg/dL (0.6-1.3); POTASSIUM 3.6 mmol/L (3.5-5.1)
[2022-01-11 12:00] VITALS: BP 122/73
[2022-01-11 16:00] VITALS: BP 111/63
--- NOTE | 2022-01-11 16:29 | NUR ---
CALLED TO PT ROOM FOR PT DESATURATING 88%. HIGH FLOW SETTINGS ADJUSTED FIO2 INCREASED TO 95%, SPO2 INCREASED TO 92%. WILL CONTINUE TO MONITOR.
--- NOTE | 2022-01-11 16:30 | NUR ---
PT CHANGED AND REPOSITIONED. PT DESAT TO 86%. ENCOURAGE DEEP BREATHING. PT @ 86-89%. RT CALLED. PT'S FIO2 INCREASED TO 95%. O2 SATURATION @ 92%. HOB ELEVATED. ICE PACK PROVIDED FOR PT. NEEDS ALL MET AT THIS TIME. RESTING QUIETLY. SAFETY MEASURES IN PLACE.
--- NOTE | 2022-01-11 18:30 | NUR ---
PRN XANAX GIVEN. PT RESTING WITH EYES CLOSED. USE OF ACCESSORY MUSCLE NOTED. ON 40L HIGH FLOW, FIO2 95% WITH O2 SATURATION @ 97%. HOB ELEVATED. NEEDS ALL MET AT THIS TIME. PT STABLE. WILL ENDORSE POC TO NIGTHSHIFT.
--- NOTE | 2022-01-11 19:17 | NUR ---
REPORT GIVEN TO NIGHTSWIFT NURSE MITCHELL FOR CONTINUITY OF CARE.
--- NOTE | 2022-01-11 19:18 | NUR ---
RECD RESTING IN BED, ASLEEP BUT EASILY AROUSABLE. RESPIRATION EVEN AND UNLABORED. ON HIGH FLOW 40 LITERS, FI02 95%, 02 SATURATION AT 95%. WITH RIGHT UPPER ARM MIDLINE WITH NS INFUSING AT TKO. SAFETY MEASURES ENFORCED. CALL LIGHT IN REACH. DENIES PAIN 0/10.
[2022-01-11 20:00] VITALS: BP 141/76
--- NOTE | 2022-01-11 20:00 | NUR ---
Patient's Plan of Care was discussed and reviewed with TARE WORKER: MITCHELL HOPSON
[2022-01-11] MEDS: ATORVASTATIN 20 MG TAB PO SCH (20:59)
--- NOTE | 2022-01-11 21:10 | NUR ---
REFUSED TO EAT DINNER, SNACK GIVEN. SCHEDULED MEDICATIONS ADMINISTERED.
--- NOTE | 2022-01-11 22:00 | NUR ---
MEDICATED WITH LASIX AND SOLU-MEDROL BY SANTANA KWON. TOLERATED WELL.
--- NOTE | 2022-01-11 23:00 | NUR ---
OCCASIONALLY DESATURATES TO 88-89% WHENEVER PATIENT TAKES SIPS OF DRINK AT THE BEDSIDE.
[2022-01-12] VITALS: BP 139/71
--- NOTE | 2022-01-12 | NUR ---
SLEEPING COMFORTABLY IN BED, RESPIRATION EVEN AND UNLABORED. CALL LIGHT IN REACH.
[2022-01-12 04:00] VITALS: BP 143/88
--- NOTE | 2022-01-12 04:45 | NUR ---
DIAPER CHANGED BY BOILERS AND PRESSURE VESSELS INSPECTOR, PATIENT DESATURATES TO 72% THEN GOES UP TO 88%. RT CAME AND SPOKE WITH PATIENT. 02 SAT WENT BACK TO 92% AFTER 10 MINS.
[2022-01-12] MEDS: ALPRAZolam 0.5 MG TAB PO PRN ×3 (05:00→22:32)
--- NOTE | 2022-01-12 05:00 | NUR ---
WITH ANXIETY, MEDICATED WITH XANAX PER MD ORDER.
[2022-01-12] MEDS: methylPREDNISolone SS 40 MG/ML VIAL IVP SCH ×3 (05:59→21:00)
--- NOTE | 2022-01-12 06:00 | NUR ---
NO ANXIETY, RESTING COMFORTABLY IN BED.
[2022-01-12] MEDS: BLOOD GLUCOSE MONITORING 1 DEV DEV FS SCH ×4 (06:34→21:00)
[2022-01-12] MEDS: INSULIN LISPRO SLIDING SCALE 100 UNITS/ML VIAL SUBQ PRN ×3 (06:36→21:30)
[2022-01-12 06:41] LABS: HEMATOCRIT 37.3 % (36-48); MEAN CORPUSCULAR HEMOGLOBIN 27 pg (27-31); MEAN CORPUSCULAR HGB CONC 32 g/dL (33-37); MEAN CORPUSCULAR VOLUME 83.9 fL (80-94); PLATELET COUNT (AUTO) 284 K/uL (140-450); RED BLOOD CELL COUNT(AUTO) 4.45 MIL/uL (4.20-5.40); RED CELL DISTRIBUTION WIDTH 14.4 % (11.6-13.7); WHITE BLOOD COUNT (AUTO) 13.6 K/uL (4.8-10.8)
[2022-01-12 06:46] LABS: ANION GAP 7.9 (8-16); CARBON DIOXIDE 37.8 mmol/L (21-32); CREATININE 0.9 mg/dL (0.6-1.3); POTASSIUM 3.7 mmol/L (3.5-5.1)
--- NOTE | 2022-01-12 06:51 | NUR ---
CONDITION REMAIN STABLE. WILL ENDORSE TO AM SHIFT NURSE FOR CONTINUITY OF CARE.
--- NOTE | 2022-01-12 07:30 | NUR ---
RECEIVED REPORT FROM HUMAN SERVICES PROGRAM SPECIALIST NURSE FOR CONTINUITY OF CARE, POC DISCUSSED. PT ON HIGH FLOW, 40L 95% FIO2 SATING AT 96%, NO S/S OF DISTRESS. A&OX4, SR ON TELE. PUREE WICK CONNECTED TO SUCTION. DENIES PAIN. RIGHT UPPER ARM MIDLINE RUNNING TKO. ALL SAFETY MEASURES IN PLACE, CALL LIGHT WITHIN REACH. WILL CONTINUE TO MONITOR.
[2022-01-12 08:00] VITALS: BP 137/77
[2022-01-12 08:35] LABS: BASOPHILS % (MANUAL) 0 % (0-2); EOSINOPHILS % (MANUAL) 0 % (0-4); LYMPHOCYTES % (MANUAL) 4 % (20-46); MONOCYTES % (MANUAL) 3 % (5-12)
[2022-01-12 08:36] LABS: BUFFY COAT SMEAR PREP N
[2022-01-12] MEDS: FUROSEMIDE 40 MG/4 ML VIAL IVP SCH ×2 (08:40→21:00)
[2022-01-12] MEDS: PANTOPRAZOLE 40 MG TABEC PO SCH (08:41)
[2022-01-12] MEDS: DOCUSATE SODIUM 100 MG GELCAP PO SCH (08:41)
[2022-01-12] MEDS: FLUoxetine 20 MG CAP PO SCH (08:41)
[2022-01-12] MEDS: SENNA 8.6 MG TAB PO SCH ×2 (08:41→21:00)
[2022-01-12] MEDS: APIXABAN 2.5 MG TAB PO SCH ×2 (08:42→21:00)
[2022-01-12] MEDS: lisinopriL 20 MG TAB PO SCH (08:42)
--- NOTE | 2022-01-12 09:00 | NUR ---
NEPTALI MEDICATION ADMINISTERED PER MD ORDER, PT TOLERATED ADMINISTRATION. EDUCATION PROVIDED, PT NODDED IN UNDERSTANDING. PT REPORTS ALL NEEDS ARE BEING MET, ON 45L 80% FIO2, NO S/S OF SOB, DENIES PAIN OR SOB. ALL SAFETY MEASURES IN PLACE,CALL LIGHT WITHIN REACH. WILL CONTINUE TO MONITOR.
--- NOTE | 2022-01-12 10:20 | NUR ---
RIGHT INDEX FINGER IV REMOVED PER PT REQUEST. CATH IN PLACE. PT TOLERATED REMOVAL. PT REPORTING HOT, FAN INCREASED. COOL WASH CLOTHE PROVIDED. PT STABLE SATING AT 94%, ALL SAFETY MEASURES IN PLACE CALL LIGHT WITHIN REACH. WILL CONTINUE TO MONITOR.
[2022-01-12 12:00] VITALS: BP 126/71
[2022-01-12] MEDS: ALBUTEROL SULFATE/IPRATROPIU 3 ML SOL IH PRN ×2 (13:47→17:35)
--- NOTE | 2022-01-12 14:29 | NUR ---
PRN XANAX ADMINISTERED PER MD ORDER, PT CRYING IN BED, O2 DESATING TO 82%, HIGH GUERDA INCREASED FIO2 TO 85% FROM 80%. PT PROVIDED WITH COOL WASH CLOTHE, AND ICE PACKS. REPORTS ALL OTHER NEEDS MET. PT NOW RESTING IN BED WITH ALL NEEDS MET, EYES CLOSED.
[2022-01-12 16:00] VITALS: BP 128/79
--- NOTE | 2022-01-12 18:56 | NUR ---
PT COMFORTED, O2 STEADY AT 90%. ALL SAFETY MEASURES IN PLACE, WILL ENDORSE TO PARK RANGER NURSE.
[2022-01-12 19:06] LABS: ANTI-NUCLEAR ANTIBODY,DIRECT Negative (Negative)
[2022-01-12 19:08] LABS: ANTI DOUBLE STRANDED DNA AB <1 IU/mL (0 - 9)
[2022-01-12 20:00] VITALS: BP 129/63
[2022-01-12] MEDS: ATORVASTATIN 20 MG TAB PO SCH (21:00)
--- NOTE | 2022-01-12 23:25 | NUR ---
PATIENT AWAKE ALERT RESTING IN BED SINUS HAS HIGH FLOW ON 100% 40 LITERS SAT 91 %. LUNGS DIMINISH TEMP 98 B/P 129/63 BLOOD SUGAR 206 GIVEN 4 UNITS OF HUMALOG S.Q. PATIENT ASK FOR XANAX 2231 CALLED DAUGHTER TO LET HER KNOW I GAVE XANAX. PATIENT RESTING QUIETLY IN BED.
[2022-01-13] VITALS (10 sets, daily range): BP systolic 112–144; BP diastolic 60–84
[2022-01-13] MEDS: methylPREDNISolone SS 40 MG/ML VIAL IVP SCH ×3 (05:00→21:12)
[2022-01-13] MEDS: BLOOD GLUCOSE MONITORING 1 DEV DEV FS SCH ×4 (06:39→21:12)
[2022-01-13] MEDS: INSULIN LISPRO SLIDING SCALE 100 UNITS/ML VIAL SUBQ PRN ×3 (06:40→21:16)
--- NOTE | 2022-01-13 07:30 | NUR ---
RECEIVED REPORT FROM MISSIONARY COORDINATOR NURSE. PT LAYING IN BED WITH HOB ELEVATED. PT IS AOX4, WITH HF NC OF 40L 100% FIO2. WITH EPISODES OF NONPRODUCTIVE COUGH. PT IS ON CARDIAC DIET AND HAS MIDLINE ON RIGHT UPPER EXTREMITY. NO S/S OF DISTRESS NOTED AND NO COMPLAIN OF PAIN. ALL SAFETY MEASURES IMPLEMENTED. CALL LIGHT WITHIN REACH, BED IS ON LOW POSITION AND BED WHEELS LOCKED.
[2022-01-13] MEDS: DOCUSATE SODIUM 100 MG GELCAP PO SCH (08:31)
[2022-01-13] MEDS: FUROSEMIDE 40 MG/4 ML VIAL IVP SCH ×2 (08:31→21:12)
[2022-01-13] MEDS: APIXABAN 2.5 MG TAB PO SCH ×2 (08:31→21:15)
[2022-01-13] MEDS: FLUoxetine 20 MG CAP PO SCH (08:32)
[2022-01-13] MEDS: SENNA 8.6 MG TAB PO SCH ×2 (08:32→21:20)
[2022-01-13] MEDS: PANTOPRAZOLE 40 MG TABEC PO SCH (08:32)
[2022-01-13] MEDS: lisinopriL 20 MG TAB PO SCH (08:32)
--- NOTE | 2022-01-13 09:10 | NUR ---
due meds given. tolerated well
[2022-01-13 09:48] LABS: BASOPHILS % (AUTO) 0.2 % (0.0-2.0); HEMATOCRIT 40.4 % (36-48); LYMPHOCYTES # (AUTO) 0.8 K/uL (2.5-16.5); LYMPHOCYTES % (AUTO) 5.8 % (20.5-51.1); MEAN CORPUSCULAR HEMOGLOBIN 27 pg (27-31); MEAN CORPUSCULAR HGB CONC 32 g/dL (33-37); MONOCYTES # (AUTO) 0.9 K/uL (0.8-1.0); MONOCYTES % (AUTO) 6.5 % (1.7-9.3); NEUTROPHILS # (AUTO) 12.2 K/uL (1.8-7.7); NEUTROPHILS % (AUTO) 87.5 % (42.2-75.2); PLATELET COUNT (AUTO) 292 K/uL (140-450); RED BLOOD CELL COUNT(AUTO) 4.81 MIL/uL (4.20-5.40); RED CELL DISTRIBUTION WIDTH 14.6 % (11.6-13.7); WHITE BLOOD COUNT (AUTO) 13.9 K/uL (4.8-10.8)
[2022-01-13] MEDS: ALPRAZolam 0.5 MG TAB PO PRN ×2 (09:58→21:20)
[2022-01-13 10:00] LABS: ANION GAP 6.5 (8-16); CARBON DIOXIDE 39.3 mmol/L (21-32); CREATININE 0.8 mg/dL (0.6-1.3); POTASSIUM 3.8 mmol/L (3.5-5.1)
--- NOTE | 2022-01-13 11:00 | NUR ---
FAMILY AT BEDSIDE, POC DISCUSSED
[2022-01-13] MEDS: ALBUTEROL SULFATE/IPRATROPIU 3 ML SOL IH PRN (13:58)
--- NOTE | 2022-01-13 14:13 | NUR ---
PT RESTING IN BED, ON NC 40L 90% FIO2
--- NOTE | 2022-01-13 18:30 | NUR ---
SEEN AND EXAMINED BY DR PHILIPPE, ORDERED TO TRANSFER TO ICU FOR OBSERVATION
--- NOTE | 2022-01-13 18:55 | NUR ---
TRANSFERRED TO ICU BED 1, REPORT GIVEN
--- NOTE | 2022-01-13 19:30 | NUR ---
RECEIVED PT FROM TELE UNIT VIA BED ACCOMPANIED PER RN AND ASSISTANCE. PT APPEARS ANXIOUS AND IS SHOWING SIGNS OF RESP DISTRESS. PT IS ON HI FLOW O2 AT 40 LITERS AND FIO2 90% 5RECEIVED PT FROM TELE UNIT VIA BED ACCOMPANIED PER RN AND ASSISTANCE. PT APPEARS ANXIOUS AND IS SHOWING SIGNS OF RSP DISTRESS. PT IS ON HI FLOW O2 AT 40 LITERS AND FIO2 90%. 5
--- NOTE | 2022-01-13 19:30 | NUR ---
RECEIVED REPORT FROM PAMELLA DILLON. PT SLEEPING M\NO APPARENT DISTRESS NOTED.
[2022-01-13] MEDS: ATORVASTATIN 20 MG TAB PO SCH (21:00)
--- NOTE | 2022-01-13 22:14 | NUR ---
PT'S HEART RATE APPROACHING 150. IT WAS 143 AT THIS TIME I TEXT DR. BRIGGS. NO RESPONSE. I TEXT HIM AGAIN 30 MINUTES LATER PT'S HEART RATE WAS 146.. I TEXT DR. BARAHONA AND HE TEXT BACK IMMEDIATELY AND REFERRED ME TO THE [facility]. 23OO CALLED [facility] ; DR. ERIC LIMA CALLED BACK AND GAVE ORDERS TO SWITCH THE LEVO OUT AND INFUSE MADHAVI-SYNEPHRINE. AND TO GIVE 2 DOSES OF 25% ALBUMIN. ORDERS PLACED AND CARRIED.
[2022-01-14] VITALS (19 sets, daily range): BP systolic 98–135; BP diastolic 56–80
[2022-01-14] MEDS: methylPREDNISolone SS 40 MG/ML VIAL IVP SCH ×3 (04:29→21:21)
--- NOTE | 2022-01-14 04:50 | NUR ---
PT IS AWAKE; WHEN ASKED IF SHE WAS NOT SLEEPY OR IF SOMETHING WAS BOTHERING HER. SHE REPLIED I'M AFRAID TO GO TO SLEEP.. I RECOUNTED MY PASS EXPERIENCE WITH COVID-19 TO HER AND SHARED WHAT MY SAVING MARGARITA WAS. SHE WAS VERY RECEPTIVE AND APPRECIATIVE.
[2022-01-14 06:00] LABS: BASOPHILS % (AUTO) 0.1 % (0.0-2.0); HEMATOCRIT 40.2 % (36-48); HEMOGLOBIN 12.9 g/dL (12.0-16.0); LYMPHOCYTES # (AUTO) 0.9 K/uL (2.5-16.5); LYMPHOCYTES % (AUTO) 5.5 % (20.5-51.1); MEAN CORPUSCULAR HEMOGLOBIN 27 pg (27-31); MEAN CORPUSCULAR HGB CONC 32 g/dL (33-37); MEAN CORPUSCULAR VOLUME 84.2 fL (80-94); MONOCYTES # (AUTO) 1.1 K/uL (0.8-1.0); MONOCYTES % (AUTO) 6.5 % (1.7-9.3); NEUTROPHILS # (AUTO) 14.3 K/uL (1.8-7.7); NEUTROPHILS % (AUTO) 87.9 % (42.2-75.2); PLATELET COUNT (AUTO) 307 K/uL (140-450); RED BLOOD CELL COUNT(AUTO) 4.77 MIL/uL (4.20-5.40); RED CELL DISTRIBUTION WIDTH 14.7 % (11.6-13.7); WHITE BLOOD COUNT (AUTO) 16.3 K/uL (4.8-10.8)
[2022-01-14 06:35] LABS: ALBUMIN 2.2 g/dL (3.4-5.0); ANION GAP 7.3 (8-16); POTASSIUM 4.3 mmol/L (3.5-5.1); TOTAL BILIRUBIN 0.8 mg/dL (0.0-1.0)
[2022-01-14 07:00] LABS: CREATININE 0.9 mg/dL (0.6-1.3)
--- NOTE | 2022-01-14 07:15 | NUR ---
RECEIVED REPORT FROM LIVING ADVISOR RN MELISSA. PT A&OX4, PERRLA. HIFLOW NC 40L, FIO2 90%. MIDLINE TO ARIC, SALINE LOCK. GENERALIZED NON-PITTING EDEMA. BOWEL SOUNDS ACTIVE IN ALL QUADRANTS. COVID PUI PRECAUTION IN PLACE. BED IN LOWEST POSITION, CALL LIGHT W/IN REACH.
[2022-01-14] MEDS: BLOOD GLUCOSE MONITORING 1 DEV DEV FS SCH ×4 (07:36→21:14)
[2022-01-14] MEDS: INSULIN LISPRO SLIDING SCALE 100 UNITS/ML VIAL SUBQ PRN ×4 (07:40→21:24)
--- NOTE | 2022-01-14 08:06 | NUR ---
PT STATED SHE WAS HAVING ANXIETY AND ASKED FOR XANAX. MEDICATED WITH PRN XANAX 0.5 MG.
[2022-01-14] MEDS: SENNA 8.6 MG TAB PO SCH ×2 (08:08→21:21)
[2022-01-14] MEDS: PANTOPRAZOLE 40 MG TABEC PO SCH (08:09)
[2022-01-14] MEDS: DOCUSATE SODIUM 100 MG GELCAP PO SCH (08:09)
[2022-01-14] MEDS: ALPRAZolam 0.5 MG TAB PO PRN ×2 (08:09→18:37)
[2022-01-14] MEDS: APIXABAN 2.5 MG TAB PO SCH (08:10)
[2022-01-14] MEDS: lisinopriL 20 MG TAB PO SCH (08:11)
[2022-01-14] MEDS: FUROSEMIDE 40 MG/4 ML VIAL IVP SCH ×2 (08:12→21:20)
--- NOTE | 2022-01-14 08:30 | NUR ---
SEEN AND EXAMINED BY DR. BARAHONA, NO NEW ORDERS RECEIVED.
--- NOTE | 2022-01-14 10:30 | NUR ---
FAMILY AT BEDSIDE.
--- NOTE | 2022-01-14 10:45 | NUR ---
SEEN AND EXAMINED BR DR. PHILIPPE, WHO UPDATED FAMILY ON POC. ORDERS RECEIVED.
[2022-01-14] MEDS: FLUoxetine 20 MG CAP PO SCH (11:36)
--- NOTE | 2022-01-14 14:24 | NUR ---
01/14/22 RD FOLLOW UP COMPLETED PLEASE REFER TO NUTRITION ASSESSMENT UNDER CARE ACTIVITY FOR ESTIMATED NUTRITIONAL NEEDS. 1. CONTINUE WITH CARDIAC + CCHO 60 GM DIET, TOLERATED 2. RECOMMEND GLUCERNA TID FOR NUTRITION SUPPORT -WILL PROVIDE 660 KCAL, 30 G PROTEIN, DAILY. 3. MONITOR PO INTAKE AND GLUCOSE LEVELS 4. RD TO FOLLOW-UP 3-5 DAYS, MODERATE RISK REVIEWED BY JOANNE SWIFT RD
--- NOTE | 2022-01-14 15:37 | NUR ---
CLEANED, TURNED, AND CHANGED CHUX AND PUREWICK WITH NURSING STUDENTS. O2 SAT DROPPED TO MID-80S WHEN TURNED. ADVISED PT TO TAKE DEEP BREATHS THROUGH THE NOSE. SATURATION RETURNED TO LOW-90S.
[2022-01-14] MEDS ORDERED: traZODone 50 MG TAB PO PRN (16:20)
--- NOTE | 2022-01-14 16:22 | NUR ---
SPOKE TO PT DAUGHTER, NIDIA, ON THE PHONE, UPDATED HER ON STATUS AND POC. NIDIA REQUESTED THAT HER MOM TAKE HER HOME MED, TRAZODONE 50MG, AT NIGHT FOR ANXIETY AND INSOMNIA. CONTACTED DR. BARAHONA FOR ORDERS.
[2022-01-14 18:04] LABS: ANTI-NUCLEAR ANTIBODY TITER NEGATIVE (Negative)
--- NOTE | 2022-01-14 18:33 | NUR ---
DAUGHTER AT BEDSIDE.
--- NOTE | 2022-01-14 18:37 | NUR ---
PT C/O ANXIETY AND REQUESTED XANAX. MEDICATED WITH PRN XANAX 0.5 MG. ALL COMFORT NEEDS MET AT THIS TIME.
--- NOTE | 2022-01-14 19:15 | NUR ---
ENDORSED REPORT TO MELISSA TEEN COUNSELOR RN FOR CONTINUITY OF CARE.
--- NOTE | 2022-01-14 19:30 | NUR ---
RECEIVED REPORT FROM NYA DILLON. PT IS LYING QUIETLY ON HER RIGHT SIDE. NO DISTRESS NOTED. SHE WAS REPORTED TO HAVE A POOR APPETITE.WILL OFFER SNAKS TONIGHT.
[2022-01-14] MEDS: ATORVASTATIN 20 MG TAB PO SCH (21:21)
[2022-01-15] VITALS (23 sets, daily range): BP systolic 87–150; BP diastolic 50–93
[2022-01-15] MEDS: methylPREDNISolone SS 40 MG/ML VIAL IVP SCH ×3 (04:57→21:38)
[2022-01-15] MEDS: ALPRAZolam 0.5 MG TAB PO PRN ×3 (05:08→23:57)
[2022-01-15 05:46] LABS: BASOPHILS % (AUTO) 0.1 % (0.0-2.0); EOSINOPHILS % (AUTO) 0.1 % (0.0-4.0); HEMATOCRIT 42.2 % (36-48); HEMOGLOBIN 13.5 g/dL (12.0-16.0); LYMPHOCYTES # (AUTO) 1.1 K/uL (2.5-16.5); LYMPHOCYTES % (AUTO) 6.7 % (20.5-51.1); MEAN CORPUSCULAR HEMOGLOBIN 27 pg (27-31); MEAN CORPUSCULAR HGB CONC 32 g/dL (33-37); MEAN CORPUSCULAR VOLUME 84.4 fL (80-94); MONOCYTES % (AUTO) 6.1 % (1.7-9.3); NEUTROPHILS # (AUTO) 14.3 K/uL (1.8-7.7); PLATELET COUNT (AUTO) 309 K/uL (140-450); RED CELL DISTRIBUTION WIDTH 14.8 % (11.6-13.7); WHITE BLOOD COUNT (AUTO) 16.4 K/uL (4.8-10.8)
[2022-01-15 06:58] LABS: ALBUMIN 2.2 g/dL (3.4-5.0); ANION GAP 9.4 (8-16); CARBON DIOXIDE 38.1 mmol/L (21-32); CREATININE 0.9 mg/dL (0.6-1.3); POTASSIUM 4.5 mmol/L (3.5-5.1)
--- NOTE | 2022-01-15 07:10 | NUR ---
SBAR REPORT RECEIVED FROM MELISSA DILLON, ALL CARES ASSUMED. PT LYING IN BED WITH EYES CLOSED. PT ON HIGH FLOW NASAL CANNULA AT 40L, 95%. BED IN LOCKED AND LOW POSITION. CALL LIGHT WITHIN REACH.
--- NOTE | 2022-01-15 07:30 | NUR ---
RECEIVED PT ON HFNC AT 40L, 95% FIO2. PT WAS SATING AT 98%. TITRATED FIO2 DOWN TO 90%.WILL CONTINUE TO MONITOR.
[2022-01-15] MEDS: FUROSEMIDE 40 MG/4 ML VIAL IVP SCH ×2 (08:24→21:37)
[2022-01-15] MEDS: DOCUSATE SODIUM 100 MG GELCAP PO SCH (08:25)
[2022-01-15] MEDS: PANTOPRAZOLE 40 MG TABEC PO SCH (08:25)
[2022-01-15] MEDS: lisinopriL 20 MG TAB PO SCH (08:26)
[2022-01-15] MEDS: SENNA 8.6 MG TAB PO SCH ×2 (08:26→21:38)
[2022-01-15] MEDS: FLUoxetine 20 MG CAP PO SCH (08:26)
[2022-01-15] MEDS: ACETAMINOPHEN 325 MG TAB PO PRN ×3 (09:46→21:38)
--- NOTE | 2022-01-15 10:00 | NUR ---
DAUGHTER OF PT AT BEDSIDE, UPDATE GIVEN, ALL QUESTIONS ANSWERED AT THIS TIME.
--- NOTE | 2022-01-15 10:30 | NUR ---
DR. WILLIAMSON ROUNDING AT BEDSIDE. UPDATE GIVEN, NO NEW ORDERS AT THIS TIME.
[2022-01-15] MEDS: ALBUTEROL SULFATE/IPRATROPIU 3 ML SOL IH PRN (11:03)
[2022-01-15] MEDS: BLOOD GLUCOSE MONITORING 1 DEV DEV FS SCH ×3 (11:22→21:37)
[2022-01-15] MEDS: INSULIN LISPRO SLIDING SCALE 100 UNITS/ML VIAL SUBQ PRN ×3 (11:25→21:41)
[2022-01-15] MEDS ORDERED: CRUSHER, PILL MC ONE (15:07)
--- NOTE | 2022-01-15 15:50 | NUR ---
DAUGHTER OF PT CALLED, UPDATE GIVEN, ALL QUESTIONS ANSWERED AT THIS TIME.
--- NOTE | 2022-01-15 17:30 | NUR ---
BED BATH GIVEN, LINENS AND GOWN CHANGED. PT RESPIRATORY RATE INCREASED WHEN TURNING, RR 30-40. AFTER TURNING PT RESUMED RR OF 20-24. PT STATES THAT ANY ACTIVITY MAKES HER ANXIOUS AND SHE NEEDS TO CALM DOWN AFTER ACTIVITIES SUCH EATING OR TURNING.
--- NOTE | 2022-01-15 17:55 | NUR ---
DR. PHILIPPE ROUNDING AT BEDSIDE. UPDATE GIVEN, ALL QUESTIONS ANSWERED. PLAN OF CARE DISCUSSED AT BEDSIDE WITH FAMILY PRESENT. DR. PHILIPPE WILL ENTER NEW ORDERS.
--- NOTE | 2022-01-15 19:17 | NUR ---
SBAR REPORT GIVEN TO CONSTANTINO DILLON, ALL CARES ENDORSED.
--- NOTE | 2022-01-15 19:33 | NUR ---
RECEIVED ENDORSEMENT FROM DAY SHIFT (SANTANA QUEVEDO). PATIENT IS AWAKE, ALERT AND ORIENTED. PATIENT IS SITTING UP IN BED, ON HIGH FLOW (40L, 80%). CALL LIGHT PLACED WITHIN REACH. WILL CONTINUE TO MONITOR PATIENT'S O2 SATS.
[2022-01-15] MEDS: ATORVASTATIN 20 MG TAB PO SCH (21:38)
--- NOTE | 2022-01-15 21:38 | NUR ---
PATIENT WITH COMPLAINTS OF ABDOMINAL PAIN; REPORTS NOT HAVING A BOWEL MOVEMENT FOR AT LEAST 3-4 DAYS. PATIENT WAS GIVEN TYLENOL 650MG PER MD ORDERS. WILL CONTINUE TO MONITOR PATIENT.
[2022-01-15] MEDS: APIXABAN 2.5 MG TAB PO SCH (21:41)
--- NOTE | 2022-01-15 23:57 | NUR ---
PATIENT WITH COMPLAINTS OF ANXIETY. ADMINISTERED XANAX PER MD ORDERS. WILL CONTINUE TO MONITOR PATIENT.
[2022-01-16] VITALS (16 sets, daily range): BP systolic 91–159; BP diastolic 50–78
--- NOTE | 2022-01-16 03:38 | NUR ---
RT AT BEDSIDE. HI FLOW TITRATED FROM 80% TO 83%. WILL CONTINUE TO MONITOR PATIENT
--- NOTE | 2022-01-16 03:51 | NUR ---
PRESS OPERATOR AUTOMATIC AT BEDSIDE FOR BLOOD DRAW.
[2022-01-16 04:24] LABS: BASOPHILS % (AUTO) 0.2 % (0.0-2.0); HEMATOCRIT 40.7 % (36-48); HEMOGLOBIN 13.1 g/dL (12.0-16.0); LYMPHOCYTES # (AUTO) 0.9 K/uL (2.5-16.5); LYMPHOCYTES % (AUTO) 5.4 % (20.5-51.1); MEAN CORPUSCULAR HEMOGLOBIN 27 pg (27-31); MEAN CORPUSCULAR HGB CONC 32 g/dL (33-37); MEAN CORPUSCULAR VOLUME 84.2 fL (80-94); MONOCYTES # (AUTO) 0.6 K/uL (0.8-1.0); MONOCYTES % (AUTO) 3.4 % (1.7-9.3); NEUTROPHILS # (AUTO) 14.9 K/uL (1.8-7.7); PLATELET COUNT (AUTO) 297 K/uL (140-450); RED BLOOD CELL COUNT(AUTO) 4.84 MIL/uL (4.20-5.40); RED CELL DISTRIBUTION WIDTH 14.7 % (11.6-13.7); WHITE BLOOD COUNT (AUTO) 16.4 K/uL (4.8-10.8)
[2022-01-16 04:40] LABS: ALBUMIN 2.3 g/dL (3.4-5.0); ANION GAP 6.9 (8-16); CARBON DIOXIDE 40.5 mmol/L (21-32); CREATININE 0.9 mg/dL (0.6-1.3); POTASSIUM 4.4 mmol/L (3.5-5.1); TOTAL BILIRUBIN 0.9 mg/dL (0.0-1.0)
[2022-01-16] MEDS: methylPREDNISolone SS 40 MG/ML VIAL IVP SCH ×3 (05:00→22:01)
[2022-01-16] MEDS: ACETAMINOPHEN 325 MG TAB PO PRN ×2 (06:46→12:37)
--- NOTE | 2022-01-16 06:50 | NUR ---
RECEIVED PT ON HFNC 40L, 85% FIO2. PT SATURATION WAS 92%. CLEAR/ DIMINISHED BREATH SOUNDS.
--- NOTE | 2022-01-16 07:15 | NUR ---
CARE OF PATIENT ENDORSED TO DAY SHIFT (SANTANA YOST)
[2022-01-16] MEDS: BLOOD GLUCOSE MONITORING 1 DEV DEV FS SCH ×4 (07:55→22:12)
[2022-01-16] MEDS: INSULIN LISPRO SLIDING SCALE 100 UNITS/ML VIAL SUBQ PRN ×3 (07:56→22:13)
[2022-01-16] MEDS: FUROSEMIDE 40 MG/4 ML VIAL IVP SCH ×2 (08:11→21:00)
[2022-01-16] MEDS: DOCUSATE SODIUM 100 MG GELCAP PO SCH (08:11)
[2022-01-16] MEDS: FLUoxetine 20 MG CAP PO SCH (08:12)
[2022-01-16] MEDS: APIXABAN 2.5 MG TAB PO SCH ×2 (08:12→22:02)
[2022-01-16] MEDS: lisinopriL 20 MG TAB PO SCH (08:12)
[2022-01-16] MEDS: SENNA 8.6 MG TAB PO SCH ×2 (08:12→22:00)
[2022-01-16] MEDS: PANTOPRAZOLE 40 MG TABEC PO SCH ×2 (08:13→22:00)
[2022-01-16] MEDS ORDERED: ENOXAPARIN 40 MG/0.4 ML SYR SUBQ SCH (09:00)
[2022-01-16] MEDS: ALBUTEROL SULFATE/IPRATROPIU 3 ML SOL IH PRN ×2 (10:14→19:37)
[2022-01-16] MEDS: ALPRAZolam 0.5 MG TAB PO PRN (12:37)
--- NOTE | 2022-01-16 19:30 | NUR ---
RECEIVED ENDORSEMENT FROM DAY SHIFT (SANTANA YOST). PATIENT IS AWAKE AND ALERT; DTR AT BEDSIDE. PATIENT CONTINUES WITH HIGH FLOW OXYGEN, 40L AT 80%. HAS PUREWICK IN PLACE, DRAINING TO SUCTION. WILL CONTINUE TO MONITOR PATIENT
[2022-01-16] MEDS: ATORVASTATIN 20 MG TAB PO SCH (22:01)
[2022-01-17] VITALS (16 sets, daily range): BP systolic 110–150; BP diastolic 66–109
[2022-01-17] MEDS: ALPRAZolam 0.5 MG TAB PO PRN ×3 (02:04→22:00)
--- NOTE | 2022-01-17 04:30 | NUR ---
UNABLE TO OBTAIN BLOOD SAMPLE FROM MIDLINE. DRIVER LICENSE REVIEWING OFFICER WILL HAVE ANOTHER SPLICER MACHINE OPERATOR COME AFTER 6AM TO OBTAIN SAMPLE.
[2022-01-17] MEDS: methylPREDNISolone SS 40 MG/ML VIAL IVP SCH ×3 (04:53→21:46)
--- NOTE | 2022-01-17 07:19 | NUR ---
CARE OF PATIENT ENDORSED TO DAY SHIFT (SANTANA ABREU)
--- NOTE | 2022-01-17 07:20 | NUR ---
received report from td mehta. PT. RESTING QUIETLY AWAKE AND FOLLOW COMMAND SKIN DRY AND WARM TO TOUCH ON HI FLOW AT 4OL/MIN 80% FI02 O2 SAT 95% DENIED PAIN.
[2022-01-17] MEDS: BLOOD GLUCOSE MONITORING 1 DEV DEV FS SCH ×4 (07:30→21:00)
[2022-01-17 07:45] LABS: BASOPHILS % (AUTO) 0.1 % (0.0-2.0); HEMATOCRIT 42.3 % (36-48); HEMOGLOBIN 13.7 g/dL (12.0-16.0); LYMPHOCYTES # (AUTO) 1.1 K/uL (2.5-16.5); LYMPHOCYTES % (AUTO) 5.3 % (20.5-51.1); MEAN CORPUSCULAR HEMOGLOBIN 27 pg (27-31); MEAN CORPUSCULAR HGB CONC 32 g/dL (33-37); MEAN CORPUSCULAR VOLUME 83.9 fL (80-94); MONOCYTES # (AUTO) 0.8 K/uL (0.8-1.0); MONOCYTES % (AUTO) 3.8 % (1.7-9.3); NEUTROPHILS % (AUTO) 90.8 % (42.2-75.2); PLATELET COUNT (AUTO) 320 K/uL (140-450); RED BLOOD CELL COUNT(AUTO) 5.04 MIL/uL (4.20-5.40); RED CELL DISTRIBUTION WIDTH 14.9 % (11.6-13.7); WHITE BLOOD COUNT (AUTO) 19.9 K/uL (4.8-10.8)
[2022-01-17 08:00] LABS: ALBUMIN 2.3 g/dL (3.4-5.0); ANION GAP 3.9 (8-16); CARBON DIOXIDE 40.8 mmol/L (21-32); CREATININE 0.9 mg/dL (0.6-1.3); POTASSIUM 4.7 mmol/L (3.5-5.1)
[2022-01-17] MEDS: FUROSEMIDE 40 MG/4 ML VIAL IVP SCH ×2 (08:35→21:45)
[2022-01-17] MEDS: FLUoxetine 20 MG CAP PO SCH (08:36)
[2022-01-17] MEDS: SENNA 8.6 MG TAB PO SCH ×2 (08:36→21:51)
[2022-01-17] MEDS: PANTOPRAZOLE 40 MG TABEC PO SCH ×2 (08:36→21:50)
[2022-01-17] MEDS: DOCUSATE SODIUM 100 MG GELCAP PO SCH (08:36)
[2022-01-17] MEDS: lisinopriL 20 MG TAB PO SCH (08:37)
[2022-01-17] MEDS: APIXABAN 2.5 MG TAB PO SCH ×2 (08:39→21:47)
[2022-01-17] MEDS: INSULIN LISPRO SLIDING SCALE 100 UNITS/ML VIAL SUBQ PRN ×2 (08:58→11:24)
--- NOTE | 2022-01-17 09:08 | NUR ---
VISIT BY DAUGHTER AT BED SIDE.
--- NOTE | 2022-01-17 11:30 | NUR ---
BLOOD SUGAR 272 INSULIN COVER 0RDERED.
--- NOTE | 2022-01-17 12:20 | NUR ---
AWAKE FEEL UNEASY AND UPSET MEDICATION GIVEN ORDERED.
[2022-01-17] MEDS: ALBUTEROL SULFATE/IPRATROPIU 3 ML SOL IH PRN (12:53)
--- NOTE | 2022-01-17 16:45 | NUR ---
UGAR 159 ,REGULAR INSULIN COVER ORDER.
[2022-01-17] MEDS: PIPERACILLIN/TAZOBACTAM 3.375 GM in DEXTROSE 5% 50 ML IV SCH (17:37)
--- NOTE | 2022-01-17 17:47 | NUR ---
DAUGHTER AT BED SIDE.
[2022-01-17] MEDS: ATORVASTATIN 20 MG TAB PO SCH (21:48)
[2022-01-18] VITALS (16 sets, daily range): BP systolic 92–144; BP diastolic 45–87
--- NOTE | 2022-01-18 01:08 | NUR ---
PATIENT AWAKE ALERT HAS HIGH FLOW ON 40 LITERS 90%. SAT 93% LUNGS DIMINISH. ON MONITOR SINUS HEART RATE 90 HAS PICCLINE UPPER RIGHT ARM NO C/O OF PAIN ASK FOR XANAX 1 MG PO 2200. DAUGHTER CALLED I TOLD HER PATIENT WAS DOING FINE. BLOOD SUGAR 233 COVERED WITH 4 UNITS OF HUMALOG S.Q. NO DISTRESS NOTED.
[2022-01-18] MEDS: methylPREDNISolone SS 40 MG/ML VIAL IVP SCH ×3 (05:28→21:20)
[2022-01-18] MEDS: PIPERACILLIN/TAZOBACTAM 3.375 GM in DEXTROSE 5% 50 ML IV SCH ×5 (06:01→17:15)
[2022-01-18 06:28] LABS: HEMATOCRIT 43.2 % (36-48); HEMOGLOBIN 13.9 g/dL (12.0-16.0); MEAN CORPUSCULAR HEMOGLOBIN 27 pg (27-31); MEAN CORPUSCULAR HGB CONC 32 g/dL (33-37); PLATELET COUNT (AUTO) 317 K/uL (140-450); RED BLOOD CELL COUNT(AUTO) 5.14 MIL/uL (4.20-5.40); RED CELL DISTRIBUTION WIDTH 14.8 % (11.6-13.7); WHITE BLOOD COUNT (AUTO) 21.5 K/uL (4.8-10.8)
[2022-01-18] MEDS: INSULIN LISPRO SLIDING SCALE 100 UNITS/ML VIAL SUBQ PRN ×5 (06:40→21:26)
[2022-01-18 07:19] LABS: ALBUMIN 2.3 g/dL (3.4-5.0); ANION GAP 5.4 (8-16); CREATININE 0.9 mg/dL (0.6-1.3); POTASSIUM 4.4 mmol/L (3.5-5.1)
--- NOTE | 2022-01-18 07:20 | NUR ---
RECEIVED REPORT FROM AMISHA LINING SETTER RN, FOR CONTINUITY OF CARE. PT A&OX4, PERRBETTYE. ARIC MIDLINE IN PLACE, PATENT, INTACT. CAP REFILL <3 SECONDS. HIFLOW NC 40L, 80% FIO2. BOWEL SOUNDS ACTIVE IN ALL QUADRANTS. PUREWICK TO SUCTION DRAINING CLEAR YELLOW URINE. GENERALIZED WEAKNESS. 2+ EDEMA ON BUE, BLE. STANDARD PRECAUTION. CALL LIGHT W/IN REACH. BED IN LOWEST POSITION.
[2022-01-18] MEDS: BLOOD GLUCOSE MONITORING 1 DEV DEV FS SCH ×4 (07:30→21:00)
[2022-01-18 07:36] LABS: LYMPHOCYTES % (MANUAL) 2 % (20-46); MONOCYTES % (MANUAL) 2 % (5-12)
[2022-01-18] MEDS: FUROSEMIDE 40 MG/4 ML VIAL IVP SCH ×2 (08:14→21:19)
[2022-01-18] MEDS: DOCUSATE SODIUM 100 MG GELCAP PO SCH (08:14)
[2022-01-18] MEDS: SENNA 8.6 MG TAB PO SCH ×2 (08:16→21:25)
[2022-01-18] MEDS: PANTOPRAZOLE 40 MG TABEC PO SCH ×2 (08:16→21:25)
[2022-01-18] MEDS: APIXABAN 2.5 MG TAB PO SCH ×2 (08:16→21:22)
[2022-01-18] MEDS: FLUoxetine 20 MG CAP PO SCH (08:18)
[2022-01-18] MEDS: lisinopriL 20 MG TAB PO SCH (08:21)
--- NOTE | 2022-01-18 08:28 | NUR ---
RECEIVED ON A VAPOTHERM HIGH FLOW NASAL CANNULA PLUGGED INTO RED OUTLET TOLERATING WELL WITHOUT ADVERSE REACTIONS NOTED AWAKE AND ALERT VERBALLY RESPONSIVE GOOD CHEST RISE AIRWAY PATENT NO SOB PRESENT AT THIS TIME
--- NOTE | 2022-01-18 09:32 | NUR ---
DAUGHTER AT BEDSIDE, UPDATED ON POC. NO FURTHER QUESTIONS AT THIS TIME.
--- NOTE | 2022-01-18 09:42 | NUR ---
SEEN AND EXAMINED BY DR. BARAHONA. NO NEW ORDERS.
--- NOTE | 2022-01-18 11:33 | NUR ---
SEEN AND EXAMINED BY DR. BRIGGS. NO NEW ORDERS.
[2022-01-18] MEDS: ALPRAZolam 0.5 MG TAB PO PRN ×2 (12:56→21:00)
--- NOTE | 2022-01-18 13:06 | NUR ---
MEDICATED WITH PRN XANAX 1 MG FOR ANXIETY. DAUGHTER AT BEDSIDE. ALL OTHER COMFORT NEEDS MET AT THIS TIME.
--- NOTE | 2022-01-18 14:00 | NUR ---
PT REPORTS DECREASED ANXIETY. ALL COMFORT NEEDS MET AT THIS TIME.
--- NOTE | 2022-01-18 14:20 | NUR ---
TOLERATING VAPOTHERM HIGH FLOW NASAL CANNULA WELL WITHOUT COMPLICATIONS NOTED SATURATION 95% ON FIO2 OF 80%VIA VAPOTHERM PATIENT PRESENTING WITH INCREASED WOB RATE 28 BPM HHN PRN THERAPY GIVEN AT THIS TIME POST THERAPY TITRATED FIO2 TO 75% NYA/SISTER SUPERIOR NOTIFIED
--- NOTE | 2022-01-18 15:00 | NUR ---
SPOKE TO DAUGHTER ELMO ON THE PHONE, UPDATED ON POC.
[2022-01-18] MEDS: ALBUTEROL SULFATE/IPRATROPIU 3 ML SOL IH PRN ×2 (15:02→17:23)
--- NOTE | 2022-01-18 18:45 | NUR ---
SMALL BM. CLEANED, TURNED, AND REPOSITIONED WITH KAMILAH RN. ALL COMFORT NEEDS MET AT THIS TIME.
--- NOTE | 2022-01-18 19:27 | NUR ---
ENDORSED REPORT TO IRIS, HOURLY TEAM MEMBERS RN, FOR CONTINUITY OF CARE.
[2022-01-18] MEDS: ATORVASTATIN 20 MG TAB PO SCH (21:21)
--- NOTE | 2022-01-18 23:28 | NUR ---
PT PLACED ON HFNC FOR INCR WOB PT TOLERATING WELL AT THIS TIME AND WILL ATTEMPT TO REPLACE HFNC AT A LATER TIME PT PLACED ON 25/11 [id number] TITRATE TOLERATED AND WILL CONTINUE TO MONITOR
--- NOTE | 2022-01-18 23:28 | NUR ---
PATIENT AWAKE RESTING WITH HIGH FLOW ON 40 LITERS 80 FI02 SAT 90%. THEN AT BEGINING OF SHIFT PUT FI02 DOWN TO 75%. PATIENT PATIENT SAT 90%. ON MONITOR SINUS .PATIENT HAS A PURWICK. BLOOD SUGAR 233. GIVEN 4 UNITS. HUMALOG S.Q NO DISTRESS NOTED.
--- NOTE | 2022-01-18 23:30 | NUR ---
PT PLACED ON HFNC FOR INCR WOB PT TOLERATING WELL AT THIS TIME AND WILL ATTEMPT TO REPLACE HFNC AT A LATER TIME PT PLACED ON 25/11 [id number] TITRATE TOLERATED AND WILL CONTINUE TO MONITOR
--- NOTE | 2022-01-18 23:31 | NUR ---
PT PLACED ON HFNC FOR INCR WOB PT TOLERATING WELL AT THIS TIME AND WILL ATTEMPT TO REPLACE HFNC AT A LATER TIME PT PLACED ON 25/11 f16 80% BIPAP PLUGGED INTO RED OUTLET W/ ALARMS ON AND AUDIBLE WILL TITRATE TOLERATED AND WILL CONTINUE TO MONITOR
[2022-01-19] VITALS (17 sets, daily range): BP systolic 91–151; BP diastolic 51–80
[2022-01-19] MEDS: ALBUTEROL SULFATE/IPRATROPIU 3 ML SOL IH PRN ×3 (03:27→14:31)
[2022-01-19] MEDS: methylPREDNISolone SS 40 MG/ML VIAL IVP SCH ×3 (05:04→20:49)
[2022-01-19] MEDS: ALPRAZolam 0.5 MG TAB PO PRN ×2 (05:12→14:34)
--- NOTE | 2022-01-19 05:24 | NUR ---
PT CONTINUES TO FEEL ANXIOUS AND REQUESTING TO TAKE BREAK FROM NIV PT REPLACED ON HFNC @ 40L 100% 34* PT SPO2 90% 5 MIN AFTER PLACING ON HFNC BIPAP REMAINS ON STDBY @ BEDSIDE WILL CONTINUE TO MONITOR AND REPLACE BIPAP IF NEEDED
[2022-01-19] MEDS: PIPERACILLIN/TAZOBACTAM 3.375 GM in DEXTROSE 5% 50 ML IV SCH ×5 (06:00→18:12)
--- NOTE | 2022-01-19 06:02 | NUR ---
PT REFUSING NIV AT THIS TIME CURRENT SPO2 88% PT HAS SOME INCR WOB BUT STATED SHE FEELS SLIGHTLY BETTER PT STATED SHE FEELS ANXIOUS W/ BIPAP AND IS WILLING TO PUT IT ON W/ DAY SHIFT BUT NOT AT THIS TIME WILL ENDORSE TO DAYSHIFT BIPAP REMAINS @ BEDSIDE ON STDBY AND PT REMAINS ON HFNC 40L 100%
[2022-01-19 06:05] LABS: HEMATOCRIT 42.2 % (36-48); HEMOGLOBIN 13.4 g/dL (12.0-16.0); MEAN CORPUSCULAR HEMOGLOBIN 27 pg (27-31); MEAN CORPUSCULAR HGB CONC 32 g/dL (33-37); MEAN CORPUSCULAR VOLUME 84.9 fL (80-94); PLATELET COUNT (AUTO) 350 K/uL (140-450); RED BLOOD CELL COUNT(AUTO) 4.97 MIL/uL (4.20-5.40); RED CELL DISTRIBUTION WIDTH 15.1 % (11.6-13.7)
[2022-01-19 06:12] LABS: ALBUMIN 2.4 g/dL (3.4-5.0); ANION GAP 11.8 (8-16); CREATININE 1.2 mg/dL (0.6-1.3); POTASSIUM 3.8 mmol/L (3.5-5.1); TOTAL BILIRUBIN 0.6 mg/dL (0.0-1.0)
[2022-01-19] MEDS: BLOOD GLUCOSE MONITORING 1 DEV DEV FS SCH ×4 (06:38→21:03)
[2022-01-19] MEDS: INSULIN LISPRO SLIDING SCALE 100 UNITS/ML VIAL SUBQ PRN ×3 (06:39→21:06)
--- NOTE | 2022-01-19 07:20 | NUR ---
Received pt alert and oriented x4. On high flow nasal cannula @ 40L/min and FiO2@100%. Sinus rhythm on monitor. Abd soft. Purewick in place with suction. Midline to right upper arm intact and patent infusing NS@TKO. Safety precautions in place.
[2022-01-19 07:29] LABS: LYMPHOCYTES % (MANUAL) 2 % (20-46); MONOCYTES % (MANUAL) 10 % (5-12); WHITE BLOOD COUNT (AUTO) 33.5 K/uL (4.8-10.8)
--- NOTE | 2022-01-19 07:54 | NUR ---
Reported elevated WBC to Dr. Baron. Awaiting for call back/response.
[2022-01-19] MEDS: lisinopriL 20 MG TAB PO SCH (08:12)
[2022-01-19] MEDS: APIXABAN 2.5 MG TAB PO SCH ×2 (08:12→21:10)
[2022-01-19] MEDS: PANTOPRAZOLE 40 MG TABEC PO SCH ×2 (08:12→20:51)
[2022-01-19] MEDS: DOCUSATE SODIUM 100 MG GELCAP PO SCH (08:12)
[2022-01-19] MEDS: SENNA 8.6 MG TAB PO SCH ×2 (08:13→20:52)
[2022-01-19] MEDS: FUROSEMIDE 40 MG/4 ML VIAL IVP SCH (08:13)
[2022-01-19] MEDS: FLUoxetine 20 MG CAP PO SCH (08:13)
[2022-01-19] MEDS ORDERED: VANCOMYCIN PER PHARMACY MC PRN (13:10)
--- NOTE | 2022-01-19 13:10 | NUR ---
New orders received from Dr. Baron.
[2022-01-19] MEDS: FLUCONAZOLE 200 MG/NS PREMIX 100 ML IV SCH (14:27)
--- NOTE | 2022-01-19 15:35 | NUR ---
01/19/22 RD FOLLOW UP COMPLETED PLEASE REFER TO NUTRITION ASSESSMENT UNDER CARE ACTIVITY FOR ESTIMATED NUTRITIONAL NEEDS. 1. CONTINUE WITH MECHANICAL SOFT CARDIAC AND CCHO 60 GMS, TOLERATED. 2. RECOMMEND GLUCERNA TID -WILL PROVIDE: 660 KCAL AND 30 G OF PROTEIN, DAILY 3. MONITOR PO INTAKE AND NUTRITION-RELATED LAB VALUES 4. RD TO FOLLOW-UP 3-5 DAYS, MODERATE RISK REVIEWED BY JOANNE SWIFT RD
[2022-01-19] MEDS: VANCOMYCIN HCL 1.25 GM in NACL 0.9% 250 ML IV SCH (15:37)
--- NOTE | 2022-01-19 17:08 | NUR ---
Dr. Vick at bedside examining pt.
--- NOTE | 2022-01-19 17:35 | NUR ---
Seen and examined by Dr. Cerna.
[2022-01-19] MEDS: POLYETHYLENE GLYCOL 17 GM/PKT PO SCH (17:43)
--- NOTE | 2022-01-19 19:10 | NUR ---
Endorsed to warehouse shift supervisor nurse Natacha for continuity of care.
--- NOTE | 2022-01-19 19:20 | NUR ---
RECEIVED REPORT FROM DAY SHIFT SANTANA KILGORE. PT. WIDE AWAKE, AOX4. ON HI FLOW O2 4L, FIO2 80%. DIET IS CARDIAC CCHO 60 GMS MECHANICAL SOFT AND WITH GLUCERNA SUPPLEMENT TID. IV SITE MIDLINE RIGHT UPPER ARM INFUSING NS TKO. PER DAYSHIFT NEED BLOOD CULTURE X 2, URINE CULTURE. BILATERAL LUNGS RALES AND TACHYPNEIC. ON PURE WICK, INTACT. SKIN DRY AND INTACT. PROVIDED SAFE AND QUIET ENVIRONMENT. BEDLOCK AND IN THE LOWEST HEIGHT. PT. DAUGHTER AT THE BEDSIDE. WILL CONT. TO MONITOR.
[2022-01-19] MEDS: ATORVASTATIN 20 MG TAB PO SCH (20:51)
--- NOTE | 2022-01-19 22:35 | NUR ---
PT.DAUGHTER CALLED AND ASKED FOR AN UPDATE. I TOLD HER THAT HER MOM IS SLEEPING AND STILL ON HI FLOW 4L 80%. NO FURTHER QUESTIONS ASKED.
[2022-01-20] VITALS (20 sets, daily range): BP systolic 106–147; BP diastolic 56–73
[2022-01-20] MEDS: ALPRAZolam 0.5 MG TAB PO PRN ×2 (01:23→12:22)
--- NOTE | 2022-01-20 03:14 | NUR ---
URINE CULTURE COLLECTED AND SENT TO LAB.
--- NOTE | 2022-01-20 04:27 | NUR ---
LAB WAS AT THE BEDSIDE, COLLECTED BLOOD CULTURE.
[2022-01-20] MEDS: methylPREDNISolone SS 40 MG/ML VIAL IVP SCH ×3 (04:39→21:00)
--- NOTE | 2022-01-20 04:54 | NUR ---
CHANGED MIDLINE UPPER ARM PICC DRESSING. PT. TOLERATED DRESSING CHANGED.
[2022-01-20] MEDS: ALBUTEROL SULFATE/IPRATROPIU 3 ML SOL IH PRN ×3 (04:57→14:02)
[2022-01-20 05:48] LABS: BASOPHILS % (AUTO) 0.1 % (0.0-2.0); HEMATOCRIT 40.4 % (36-48); HEMOGLOBIN 12.7 g/dL (12.0-16.0); LYMPHOCYTES % (AUTO) 4.1 % (20.5-51.1); MEAN CORPUSCULAR HEMOGLOBIN 27 pg (27-31); MEAN CORPUSCULAR HGB CONC 32 g/dL (33-37); MEAN CORPUSCULAR VOLUME 84.6 fL (80-94); MONOCYTES # (AUTO) 0.9 K/uL (0.8-1.0); MONOCYTES % (AUTO) 3.8 % (1.7-9.3); NEUTROPHILS # (AUTO) 22.8 K/uL (1.8-7.7); PLATELET COUNT (AUTO) 279 K/uL (140-450); RED BLOOD CELL COUNT(AUTO) 4.77 MIL/uL (4.20-5.40); WHITE BLOOD COUNT (AUTO) 24.8 K/uL (4.8-10.8)
[2022-01-20] MEDS: PIPERACILLIN/TAZOBACTAM 3.375 GM in DEXTROSE 5% 50 ML IV SCH ×5 (06:00→17:18)
[2022-01-20 06:14] LABS: ALBUMIN 2.3 g/dL (3.4-5.0); ANION GAP 7.3 (8-16); CREATININE 0.7 mg/dL (0.6-1.3); POTASSIUM 4.3 mmol/L (3.5-5.1); TOTAL BILIRUBIN 0.9 mg/dL (0.0-1.0)
--- NOTE | 2022-01-20 07:15 | NUR ---
Received pt alert and oriented x4. On high flow nasal cannula 40L FiO2 80%. Sinus rhythm on monitor. Abd with active bowel sounds. No sign/symptoms of hypo/hyperglycemia. Purewick in place and to suction. Midline on right upper arm intact and patent infusing NS @TKO. Safety precautions in place.
[2022-01-20] MEDS: BLOOD GLUCOSE MONITORING 1 DEV DEV FS SCH ×4 (07:30→21:00)
[2022-01-20] MEDS: INSULIN LISPRO SLIDING SCALE 100 UNITS/ML VIAL SUBQ PRN ×3 (07:39→15:40)
--- NOTE | 2022-01-20 07:55 | NUR ---
RT at bedside.
[2022-01-20] MEDS: lisinopriL 20 MG TAB PO SCH (08:19)
[2022-01-20] MEDS: DOCUSATE SODIUM 100 MG GELCAP PO SCH (08:19)
[2022-01-20] MEDS: PANTOPRAZOLE 40 MG TABEC PO SCH ×2 (08:20→21:00)
[2022-01-20] MEDS: POLYETHYLENE GLYCOL 17 GM/PKT PO SCH (08:20)
[2022-01-20] MEDS: SENNA 8.6 MG TAB PO SCH ×2 (08:20→21:00)
[2022-01-20] MEDS: FLUoxetine 20 MG CAP PO SCH (08:20)
[2022-01-20] MEDS: APIXABAN 2.5 MG TAB PO SCH ×2 (08:21→21:00)
--- NOTE | 2022-01-20 12:45 | NUR ---
Seen and examined by Dr. Cerna. No new orders.
[2022-01-20] MEDS: FLUCONAZOLE 200 MG/NS PREMIX 100 ML IV SCH (13:01)
--- NOTE | 2022-01-20 13:13 | NUR ---
Dr. Vick at bedside examining pt. Dr. Vick on phone call with daughter Citlali discussing pt status.
[2022-01-20] MEDS: VANCOMYCIN HCL 1.25 GM in NACL 0.9% 250 ML IV SCH (14:31)
--- NOTE | 2022-01-20 19:10 | NUR ---
Endorsed to night monitor nurse Gui for continuity of care.
--- NOTE | 2022-01-20 19:30 | NUR ---
RECEIVED REPORT FROM MAGUI DILLON. PT'S DAUGHTER IS AT THE BEDSIDE PT APPEARS ANXIOUS.DAUGHTER IS REQUESTING XANAX. PT HSA LABORED BREATHING. MANDEEP RT. PLACED PT ON A BI PAP 27/01 AND SHE IS RESTING MORE COMFORTABLY
[2022-01-20] MEDS: ATORVASTATIN 20 MG TAB PO SCH (21:00)
[2022-01-20] MEDS: DEXMEDETOMIDINE HCL 400 MCG in NACL 0.9% 96 ML IV PRN (21:30)
[2022-01-20] MEDS ORDERED: DEXMEDETOMIDINE HCL 100 MCG/ML 2 ML VIAL IV ONE (21:34)
[2022-01-21] VITALS (19 sets, daily range): BP systolic 40–152; BP diastolic 25–82
[2022-01-21] MEDS: PIPERACILLIN/TAZOBACTAM 3.375 GM in DEXTROSE 5% 50 ML IV SCH ×4 (00:02→18:26)
[2022-01-21] MEDS: methylPREDNISolone SS 40 MG/ML VIAL IVP SCH ×2 (05:10→12:58)
[2022-01-21] MEDS: ALBUTEROL SULFATE/IPRATROPIU 3 ML SOL IH PRN ×3 (05:53→12:59)
--- NOTE | 2022-01-21 06:21 | NUR ---
PT HAD NO URINE OUTPUT CALL PLACED TO TO INFORM.
--- NOTE | 2022-01-21 06:29 | NUR ---
DR. PHILIPPE CALLED BACK AND WAS INFORMED. HE SAID HE TAKE CARE OF THE PROBLEM WHEN HE COME IN.
--- NOTE | 2022-01-21 06:38 | NUR ---
CHECKING ON PT AT THIS TIME AND FOUND SHE VOIDED 150CC OF URINE.
--- NOTE | 2022-01-21 07:10 | NUR ---
Received pt alert and oriented x4. On bipap 28/01 rate 10 FiO2@100%. Sinus rhythm on monitor. Abd soft with active bowel sounds. Purewick in place and on to suction. Midline to right upper arm intact and patent infusing Precedex @0.2mcg/kg/hr and NS @TKO. Safety precautions in place.
[2022-01-21] MEDS: BLOOD GLUCOSE MONITORING 1 DEV DEV FS SCH ×4 (07:38→21:00)
[2022-01-21] MEDS: INSULIN LISPRO SLIDING SCALE 100 UNITS/ML VIAL SUBQ PRN ×4 (07:41→21:30)
[2022-01-21 08:07] LABS: BASOPHILS # (AUTO) 0.1 K/uL (0.00-0.22); BASOPHILS % (AUTO) 0.2 % (0.0-2.0); HEMATOCRIT 39.2 % (36-48); HEMOGLOBIN 12.4 g/dL (12.0-16.0); LYMPHOCYTES # (AUTO) 0.7 K/uL (2.5-16.5); LYMPHOCYTES % (AUTO) 2.5 % (20.5-51.1); MEAN CORPUSCULAR HEMOGLOBIN 27 pg (27-31); MEAN CORPUSCULAR HGB CONC 32 g/dL (33-37); MEAN CORPUSCULAR VOLUME 85.4 fL (80-94); MONOCYTES # (AUTO) 1.7 K/uL (0.8-1.0); NEUTROPHILS # (AUTO) 26.1 K/uL (1.8-7.7); NEUTROPHILS % (AUTO) 91.3 % (42.2-75.2); PLATELET COUNT (AUTO) 251 K/uL (140-450); RED BLOOD CELL COUNT(AUTO) 4.58 MIL/uL (4.20-5.40)
[2022-01-21] MEDS: SENNA 8.6 MG TAB PO SCH ×2 (08:24→21:00)
[2022-01-21] MEDS: FLUoxetine 20 MG CAP PO SCH (08:26)
[2022-01-21] MEDS: DOCUSATE SODIUM 100 MG GELCAP PO SCH (08:27)
[2022-01-21] MEDS: POLYETHYLENE GLYCOL 17 GM/PKT PO SCH (08:28)
[2022-01-21] MEDS: lisinopriL 20 MG TAB PO SCH (08:29)
[2022-01-21] MEDS: PANTOPRAZOLE 40 MG TABEC PO SCH ×2 (08:30→21:00)
[2022-01-21 08:31] LABS: WHITE BLOOD COUNT (AUTO) 28.6 K/uL (4.8-10.8)
[2022-01-21] MEDS: APIXABAN 2.5 MG TAB PO SCH ×2 (08:37→21:00)
[2022-01-21 08:42] LABS: CREATININE 0.9 mg/dL (0.6-1.3); POTASSIUM 4.7 mmol/L (3.5-5.1)
[2022-01-21 08:53] LABS: CARBON DIOXIDE 41.7 mmol/L (21-32)
--- NOTE | 2022-01-21 10:15 | NUR ---
Seen and examined by Dr. Cerna.
--- NOTE | 2022-01-21 10:26 | NUR ---
Reported CO2 level to Dr. Ferguson and updated pt status. Continue with Bipap.
[2022-01-21] MEDS: DEXMEDETOMIDINE HCL 400 MCG in NACL 0.9% 96 ML IV PRN (11:13)
--- NOTE | 2022-01-21 12:00 | NUR ---
Pt with low temp. Please see vital sign assessment. Refused bryanna vedagger due to c/o feeling hot. Compliant with additional blanket. Will continue to monitor.
--- NOTE | 2022-01-21 13:15 | NUR ---
Dr. Ferguson at bedside examining pt. Educated pt regarding bipap and possibly need for feeding tube.
[2022-01-21] MEDS: FLUCONAZOLE 200 MG/NS PREMIX 100 ML IV SCH (13:46)
[2022-01-21] MEDS: VANCOMYCIN 1,500 MG in NACL 0.9% 500 ML IV SCH (15:28)
--- NOTE | 2022-01-21 16:00 | NUR ---
Pt with low temp. Christopher caraballo in place.
--- NOTE | 2022-01-21 16:40 | NUR ---
Seen and examined by Dr. Vick and discussed the necessity of intubation. Pt breathing deep and labored with bipap. Daughter at bedside and refused intubation, but wants to continue as full code. Discussed code status and pt and family wants to continue full code status and to hold intubation for now until family comes together to make a decision.
--- NOTE | 2022-01-21 18:42 | NUR ---
RECEIVED PT ON BiPAP. PT IS AWAKE AND ALERT. BiPAP SETTINGS: IPAP 20, EPAP 12, BACK UP RATE 16, FiO2 85%. BiPAP PLUGGED IN RED OUTLET, ALARMS SET AND FUNCTIONING. FiO2 TITRATED TO 100% DUE TO PT DESATURATING.
--- NOTE | 2022-01-21 18:45 | NUR ---
CALLED TO BEDSIDE TO HELP ASSIST PT ON BiPAP TO DRINK WATER. AT BEDSIDE, PT IS WAKE, ALERT, AND RESPONSIVE. PT WAS DESATURATING. FiO2 INCREASED TO 100%. SPO2 88% TO 91%. NOTICED THAT PT NECK NAD CHEST SWELLING, FELT FOR CREPITUS ON THE RIGHT NECK. RN WAS INFORMED TO PUT IN STAT CHEST XRAY.
--- NOTE | 2022-01-21 19:18 | NUR ---
Chest xray done at bedside.
--- NOTE | 2022-01-21 19:22 | NUR ---
Endorsed to quality improvement coordinator (rn) nurse Iris for continuity of care. O2 sat 90%.
--- NOTE | 2022-01-21 19:43 | NUR ---
PAGED PT'S CAR RENTAL AGENCY MANAGER TO REPORT XRAY CRITICAL RESULTS.
--- NOTE | 2022-01-21 19:46 | NUR ---
DR. HERNÁNDEZ CALLED BACK. READ THE OFFICIAL XRAY IMPRESSION RESULTS [address] HERNÁNDEZ AND ALSO INFORMED HIM ABOUT BiPAP SETTINGS. PER DR. HERNÁNDEZ HE IS GOING TO CALL THE SURGEON FOR CHEST TUBE INSERTION.
--- NOTE | 2022-01-21 20:03 | NUR ---
PHONE CALL FROM DR PHILIPPE, [facility] VP CLINICAL, PHYSICIAN WANTS RN TO CALL THE FAMILY REGARDING INTUBATION ( DR PHILIPPE SPOKE WITH THEM EARLIER AND THE FAMILY DOES NOT WANT IT DONE AT THIS TIME, THEY ARE WAITING FOR THE PTS SISTER'S ARRIVAL FROM OUT OF STATE IN AM)AND CHEST TUBE PLACEMENT, EARLIER PHONE CALL FROM DR FRANCISCO, RADIOLOGIST REGARDING CRITICAL RADIOLOGY REPORT WHICH FITNESS ASSISTANT READ BACK TO DR PHILIPPE. PER DR PHILIPPE, HE WILL CALL SURGEON AND ER DOCTOR HIMSELF.
--- NOTE | 2022-01-21 20:05 | NUR ---
PHONE CALL TO PTS ALL, NO ANSWER, LEFT MESSAGE TO CALL RN, AWAITING REPLY
--- NOTE | 2022-01-21 20:20 | NUR ---
PTS FAMILY IN THE UNIT, PTS AMBER,DAUGHTER NIDIA MONTEZ, SIGNED THE CHEST TUBE INSERTION AND CENTRAL LINE PLACEMENT CONSENT, THE FAMILY HAS DECIDED TO DO EVERYTHING FOR THE PT AT THIS TIME.
[2022-01-21] MEDS: ATORVASTATIN 20 MG TAB PO SCH (21:00)
[2022-01-21] MEDS ORDERED: LIDOCAINE MPF 1% 5 ML ONE (21:17)
[2022-01-21] MEDS ORDERED: LIDOCAINE MPF 1% 10 MG/ML VIAL INJ SCH (21:20)
[2022-01-21] MEDS ORDERED: fentaNYL citrate 0.05 MG/ML VIAL ONE (21:23)
[2022-01-21] MEDS: methylPREDNISolone SS 125 MG/2 ML VIAL IVP SCH (21:26)
[2022-01-21] MEDS ORDERED: LIDOCAINE 2% 100 MG/5 ML SYR IVP ONE (21:45)
[2022-01-21] MEDS ORDERED: HYDROmorphone 1 MG/ML AMP ONE (21:52)
[2022-01-21] MEDS ORDERED: NOREPINEPHRINE 4 MG/4 ML VIAL IV ONE (22:29)
[2022-01-21] MEDS: NOREPINEPHRINE 8 MG in DEXTROSE 5% 250 ML IV PRN (22:30)
[2022-01-21] MEDS: PROPOFOL 1000 MG/100 ML PREMIX 100 ML IV PRN (22:40)
[2022-01-21] MEDS ORDERED: LIDOCAINE/EPI 1% 1:100000 20 ML VIAL INJ ONE ×2 (22:45)
--- NOTE | 2022-01-21 22:55 | NUR ---
PT WAS INTUBATED AT APPROXIMATELY [address] MILLER. ETT SIZE 8.0 AND SECURED @ 24cm PER DR. MILLER ETT WAS PULLED BACK TO 22 cm DUE TO DECREASED BREATH SOUNDS ON LEFT SIDE. NOW ETT IS SECURED WITH ARCHOR-FAST 22cm @ GUM. BILATERAL BREATH SOUNDS ON AUSCULTATION. COLOR CHANGE ON CO2 DETECTED. XRAY ORDERED. PLACED PT ON VENT. VENT PLUGGED IN RED OUTLET. VENT ALARMS SET AND AUDIBLE.
[2022-01-21] MEDS ORDERED: HYDROmorphone 1 MG/ML AMP IVP ONE (23:00)
--- NOTE | 2022-01-21 23:26 | NUR ---
ADRIÁN HYATT'S DORIS FOR ABG CRITICAL RESULTS.
--- NOTE | 2022-01-21 23:50 | NUR ---
PAMELA CRITICAL RESULTS WERE REPORTED TO DR. MILLER. NO CHANGES MADE AT THIS TIME
[2022-01-22] VITALS (23 sets, daily range): BP systolic 83–151; BP diastolic 46–80
--- NOTE | 2022-01-22 01:27 | NUR ---
PATIENT ON BI-PAP AT 1999.FI02 AT 100% PATIENT HAS A RIGHT PNEUMOTHORAX X-RAY SHOWS. DR. BARBER IN TO PUT IN CHEST TUBE AROUND 2200. WATER SEAL TO CONT. SUCTION 20MMHG WATER IS TIDALING. PINK RED DRAINAGE COMING INTO WATER SEAL. WATER SEAL INTACT TO THE FLOOR. PATIENT GOT INTUBATED 2225 8.0 22CM. PUT TO VENT RATE 25 TV 400, FI02 100% PEEP 5. DR. LI PREXIDEX DRIP WAS STARTED ON LEVOPHED NOW AT 25 MCG, PROPOFOL 5 MCG, FENTANYL 0.5 MCG. NGT PUT IN F/C PATIENT YELLOW URINE. NGT CLAMPED. BLOOD SUGAR 2130 185 COVERED WITH 2 UNITS HUMALOG S.Q. PATIENT BLOOD PRESSURE 96/57.MERY HERE AT 0137.TO PUT IN PICC LINE.
[2022-01-22] MEDS: fentaNYL citrate 1 MG in NACL 0.9% 80 ML IV PRN ×4 (01:57→23:12)
[2022-01-22] MEDS: NOREPINEPHRINE 8 MG in DEXTROSE 5% 250 ML IV PRN ×3 (02:52→09:23)
[2022-01-22] MEDS ORDERED: NOREPINEPHRINE 4 MG/4 ML VIAL IV ONE (03:39)
[2022-01-22] MEDS: methylPREDNISolone SS 125 MG/2 ML VIAL IVP SCH ×3 (05:00→20:37)
[2022-01-22] MEDS ORDERED: PHENYLEPHRINE 10 MG/ML VIAL ONE (05:37)
[2022-01-22] MEDS: PHENYLEPHRINE 40 MG in NACL 0.9% 250 ML IV PRN ×3 (05:41→20:29)
[2022-01-22 06:02] LABS: HEMOGLOBIN 11.8 g/dL (12.0-16.0); MEAN CORPUSCULAR HEMOGLOBIN 27 pg (27-31); MEAN CORPUSCULAR HGB CONC 31 g/dL (33-37); MEAN CORPUSCULAR VOLUME 86.4 fL (80-94); PLATELET COUNT (AUTO) 236 K/uL (140-450); RED CELL DISTRIBUTION WIDTH 15.8 % (11.6-13.7)
[2022-01-22] MEDS: PIPERACILLIN/TAZOBACTAM 3.375 GM in DEXTROSE 5% 50 ML IV SCH ×6 (06:29→23:36)
[2022-01-22] MEDS: BLOOD GLUCOSE MONITORING 1 DEV DEV FS SCH ×4 (06:29→23:36)
[2022-01-22] MEDS: INSULIN LISPRO SLIDING SCALE 100 UNITS/ML VIAL SUBQ PRN ×4 (06:30→23:37)
[2022-01-22 06:59] LABS: WHITE BLOOD COUNT (AUTO) 34.1 K/uL (4.8-10.8)
[2022-01-22 07:00] LABS: ANION GAP 13.8 (8-16); CARBON DIOXIDE 31.9 mmol/L (21-32); CREATININE 1.5 mg/dL (0.6-1.3); POTASSIUM 4.7 mmol/L (3.5-5.1)
--- NOTE | 2022-01-22 07:30 | NUR ---
Received report on pt. Pt intubated on ventilator FiO2 100%. Pt in no signs of pain or distress, on multiple IV drips: diprivan, fentanyl, levophed, and megan-synephrine, with NS TKO going to right UA midline and left UA PICC line. Pt noted with right chest tube to low continuous suction with red drainage, no leaks or crepitus noted. Pt with generalized edema on neck, BUE, and BLE. NGT in left nare, auscultated for placement, clamped. Nunez in place with less than 10ml yellow urine draining to gravity. Off-loaded heels with pillows. Oral care done.
[2022-01-22] MEDS: PROPOFOL 1000 MG/100 ML PREMIX 100 ML IV PRN ×2 (07:59→15:33)
[2022-01-22 08:03] LABS: LYMPHOCYTES % (MANUAL) 2 % (20-46); MONOCYTES % (MANUAL) 6 % (5-12)
[2022-01-22] MEDS: lisinopriL 20 MG TAB PO SCH (08:38)
[2022-01-22] MEDS: PANTOPRAZOLE 40 MG TABEC PO SCH ×2 (08:41→20:36)
[2022-01-22] MEDS: SENNA 8.6 MG TAB PO SCH ×2 (08:41→20:37)
[2022-01-22] MEDS: POLYETHYLENE GLYCOL 17 GM/PKT PO SCH (08:42)
[2022-01-22] MEDS: DOCUSATE SODIUM 100 MG GELCAP PO SCH (08:42)
[2022-01-22] MEDS: FLUoxetine 20 MG CAP PO SCH (08:43)
[2022-01-22] MEDS: APIXABAN 2.5 MG TAB PO SCH ×2 (08:49→20:31)
[2022-01-22] MEDS: ALBUTEROL SULFATE/IPRATROPIU 3 ML SOL IH PRN (09:39)
--- NOTE | 2022-01-22 10:00 | NUR ---
Pt's daughter Citlali Foy called, updated regarding pt's current condition.
--- NOTE | 2022-01-22 12:09 | NUR ---
01/22/22 RD FOLLOW UP COMPLETED PLEASE REFER TO NUTRITION ASSESSMENT UNDER CARE ACTIVITY FOR ESTIMATED NUTRITIONAL NEEDS. 1. WHEN/IF MEDICALLY APPROPRIATE, RECOMMEND GLUCERNA 1.2 WITH A GOAL RATE OF 50 ML/HR WITH PROSOURCE TID -FWF: 50 ML Q6H OR PER MD -START AT 10 ML/HR AND INCREASE BY 10 ML Q4H TOLERATED -WILL PROVIDE 100% OF ESTIMATED NUTRIENT NEEDS 2. MONITOR GASTRIC RESIDUALS AND NUTRITION-RELATED LAB VALUES 3. RD TO FOLLOW-UP 2-3 DAYS, HIGH RISK JOANNE SWIFT RD
--- NOTE | 2022-01-22 12:57 | NUR ---
INCREASED TIDAL VOLUME ON VENT FROM 400 TO 500 PER MD. PEAK PRESSURES EXCEEDING 45. DR. PHILIPPE PAGED FOR FURTHER CONSULT OF POSSIBLE CHANGES TO DIFFERENT SETTING FOR BETTER LUNG MANAGEMENT.
--- NOTE | 2022-01-22 14:00 | NUR ---
Pt's daughter Citlali at bedside, updated regarding pt's status.
[2022-01-22] MEDS: FLUCONAZOLE 200 MG/NS PREMIX 100 ML IV SCH (14:11)
[2022-01-22] MEDS: NOREPINEPHRINE 16 MG in DEXTROSE 5% 250 ML IV PRN (14:29)
[2022-01-22] MEDS: VANCOMYCIN 1,500 MG in NACL 0.9% 500 ML IV SCH (15:34)
[2022-01-22] MEDS ORDERED: ALBUTEROL 0.083% 2.5 MG/3 ML NEBU INH PRN (17:05)
[2022-01-22] MEDS ORDERED: IPRATROPIUM 0.02% 0.5 MG/2.5 ML NEBU INH PRN (17:05)
--- NOTE | 2022-01-22 18:00 | NUR ---
Pt noted with blood and stool. Collected stool for occult blood and sent to lab.
--- NOTE | 2022-01-22 19:23 | NUR ---
Endorsed plan of care to RN.
--- NOTE | 2022-01-22 19:30 | NUR ---
RECEIVED REPORT FROM ANSON DILLON. PT RECEIVED INSTATED CONDITION. PT'S IS SWOLLEN FROM HER FACE TO HER FEET SHE HAS NO URINE OUTPUT. HER PUPILS ARE VERY SLUGGISH. SHE IS INTUBATED ORALLY AND SH HAS FEEDING TUBE IN HER LEFT NARE. NO TUBE FEEDING AT THIS TIME. SHE HAS HYPOACTIVE BOWEL SOUNDS AND A REPORTED SMALL BM. PT IS ON TWO PRESSORS FOR HYPOTENTION LEVOPHED AND MADHAVI-SYNEPHRINE BOTH MAXED OUT. SHE'S AT A RASS -4 RECEIVING BOTH PROPOFOL AND FENTANYL. SHE HAS NO PEDAL PULSES PER DOPPLER AND DR. PHILIPPE WAS INFORMED. HER CHEST TUBE IS DRAINING BRIGHT RED BLOOD. NO FAMILY HERE PRESENTLY
[2022-01-22] MEDS ORDERED: VASOPRESSIN 20 UNITS in NACL 0.9% 250 ML IV PRN (19:50)
--- NOTE | 2022-01-22 20:00 | NUR ---
SPOKE TO DR. PHILIPPE ABOUT PT DESATURATING. FiO2 100%. AND PEEP 5. PER DOCTOR DO NOT INCREASE PEEP AT THIS TIME.
--- NOTE | 2022-01-22 20:04 | NUR ---
PHONE CALL TO PTS NOK, DAUGHTER NIDIA MONTEZ, UPDATED ON PTS PRESENT CONDITION.QUESTIONS ANSWERED.MADE AWARE THAT PT IS STILL ON 100% FIO2 ON VENT 02SAT AT THIS TIME IS 83%, BOTH VASOPRESSORS(LEVOPHED AND MADHAVI SYNEPHRINE AT MAX DOSE PER PROTOCOL.PER NIDIA, IF ANYTHING WILL HAPPEN, TO DO EVERYTHING.PT IS STILL FULL CODE.EUNICE RN ,PTS PRIMARY NURSE AWARE
--- NOTE | 2022-01-22 20:30 | NUR ---
DR. BAUTISTA HERE TO ASSESS PT NO NEW ORDERES GIVEN.
[2022-01-22] MEDS: ATORVASTATIN 20 MG TAB PO SCH (20:35)
--- NOTE | 2022-01-22 20:45 | NUR ---
DAUGHTER AND GRANDSON AT THE BEDSIDE AND HER SITER CAME IN AT 2100
[2022-01-23] VITALS (22 sets, daily range): BP systolic 66–133; BP diastolic 24–78
[2022-01-23] MEDS: NOREPINEPHRINE 16 MG in DEXTROSE 5% 250 ML IV PRN ×2 (00:20→14:41)
[2022-01-23] MEDS: PHENYLEPHRINE 40 MG in NACL 0.9% 250 ML IV PRN ×5 (01:35→18:11)
[2022-01-23] MEDS: PROPOFOL 1000 MG/100 ML PREMIX 100 ML IV PRN ×2 (02:30→12:30)
--- NOTE | 2022-01-23 02:38 | NUR ---
PT'S SP02 DROPPED TO 78, RT IS AWARE BUT HAS LIMITS PLACED PER MD. HE CAN'TINCREASE THE PEEP DUE TO THE PNUEMOTHORAX. WILL CONTINUE TO MONITOR PT CLOSELY.
--- NOTE | 2022-01-23 03:10 | NUR ---
BLOOD PRESSURE IS DROPPING AND THE SPO2 IS ALSO DROPPING. BP90/56 UP FROM 84/ AND THE SPO2 IS NOW 80 UF FROM 78. NO EXTENDED BLEEDING FORM CHEST TUBE AND NO URINE OUTPUT.
[2022-01-23] MEDS: methylPREDNISolone SS 125 MG/2 ML VIAL IVP SCH ×2 (05:00→12:06)
[2022-01-23] MEDS: PIPERACILLIN/TAZOBACTAM 3.375 GM in DEXTROSE 5% 50 ML IV SCH ×3 (05:49→17:24)
[2022-01-23] MEDS: BLOOD GLUCOSE MONITORING 1 DEV DEV FS SCH ×3 (05:50→17:24)
[2022-01-23] MEDS: INSULIN LISPRO SLIDING SCALE 100 UNITS/ML VIAL SUBQ PRN ×3 (05:51→17:23)
--- NOTE | 2022-01-23 06:15 | NUR ---
ADELAIDE DILLON SPOKE WITH AND INFORMED HIM OF THE PT'S I/O IMBALANCE. 1700+IN AND 0 OUTPUT.
[2022-01-23 06:16] LABS: BASOPHILS # (AUTO) 0.1 K/uL (0.00-0.22); BASOPHILS % (AUTO) 0.2 % (0.0-2.0); HEMATOCRIT 36.2 % (36-48); HEMOGLOBIN 11.1 g/dL (12.0-16.0); LYMPHOCYTES # (AUTO) 0.5 K/uL (2.5-16.5); LYMPHOCYTES % (AUTO) 1.5 % (20.5-51.1); MEAN CORPUSCULAR HEMOGLOBIN 27 pg (27-31); MEAN CORPUSCULAR HGB CONC 31 g/dL (33-37); MEAN CORPUSCULAR VOLUME 87.6 fL (80-94); MONOCYTES % (AUTO) 5.5 % (1.7-9.3); NEUTROPHILS # (AUTO) 33.5 K/uL (1.8-7.7); NEUTROPHILS % (AUTO) 92.8 % (42.2-75.2); PLATELET COUNT (AUTO) 188 K/uL (140-450); RED BLOOD CELL COUNT(AUTO) 4.13 MIL/uL (4.20-5.40); RED CELL DISTRIBUTION WIDTH 15.8 % (11.6-13.7)
[2022-01-23 06:24] LABS: ALBUMIN 2.1 g/dL (3.4-5.0); ANION GAP 13.3 (8-16); CARBON DIOXIDE 33.2 mmol/L (21-32); CREATININE 2.8 mg/dL (0.6-1.3); POTASSIUM 5.5 mmol/L (3.5-5.1); TOTAL BILIRUBIN 1.3 mg/dL (0.0-1.0)
--- NOTE | 2022-01-23 06:34 | NUR ---
DAUGHTER CALLED TO INQUIRE OF MOMS PROGRESSS.
[2022-01-23] MEDS ORDERED: VASOPRESSIN 20 UNITS/ML VIAL ONE (06:45)
[2022-01-23] MEDS: fentaNYL citrate 1 MG in NACL 0.9% 80 ML IV PRN ×2 (06:56→14:42)
--- NOTE | 2022-01-23 07:10 | NUR ---
Received report on pt. Pt intubated on ventilator FiO2 100% and saturating in 70s to low 80s. Pt maxed on multiple pressors: vasopressin, levohped, and neosynephrine. Pt also receiving propofol and fentanyl drips. Right chest tube in place, no leaking noted, connected to suction, noted sanguineous drainage. NGT in place. Nunez in place with minimal urine draining to gravity.
[2022-01-23 07:11] LABS: WHITE BLOOD COUNT (AUTO) 36.1 K/uL (4.8-10.8)
[2022-01-23] MEDS ORDERED: SODIUM POLYSTYRENE 15 GM/60 ML UDBTL PO SCH (08:30)
[2022-01-23] MEDS ORDERED: PHENYLEPHRINE 10 MG/ML VIAL ONE (08:58)
[2022-01-23] MEDS: APIXABAN 2.5 MG TAB PO SCH (09:00)
[2022-01-23] MEDS: DOCUSATE SODIUM 100 MG GELCAP PO SCH (09:00)
[2022-01-23] MEDS: POLYETHYLENE GLYCOL 17 GM/PKT PO SCH (09:30)
[2022-01-23] MEDS: PANTOPRAZOLE 40 MG TABEC PO SCH (09:31)
[2022-01-23] MEDS: SENNA 8.6 MG TAB PO SCH (09:31)
[2022-01-23] MEDS: FLUoxetine 20 MG CAP PO SCH (09:31)
--- NOTE | 2022-01-23 09:45 | NUR ---
Dr. Vick rounding on pt and speaking with pt's family regarding code status. New orders made.
[2022-01-23] MEDS ORDERED: PANTOPRAZOLE 40 MG INJ VIAL IVP SCH (09:55)
--- NOTE | 2022-01-23 11:01 | NUR ---
Patient's daughter Citlali at bedside, waiting for other family members.
--- NOTE | 2022-01-23 12:00 | NUR ---
Patient's family at bedside. Updated regarding patient's status.
[2022-01-23] MEDS: FLUCONAZOLE 200 MG/NS PREMIX 100 ML IV SCH (14:00)
--- NOTE | 2022-01-23 19:12 | NUR ---
Family at bedside with patient
--- NOTE | 2022-01-23 19:30 | NUR ---
ASSUMED CARE OF PT,INITIAL ASSESSMENT COMPLETED.SB NOTED ON MONITOR.ETT TO VENT FIO2 100% SATURATION 70'S TO 80'S.W/MIDLINE TO ARIC NOTED INFUSING NS AT 5ML/HR AND FAMILIA PICC LINE INFUSING LEVOPHED 16 MG IN 250ML D5W AT 30MCG/MIN, VASOPRESSIN 20MG IN 250ML NS AT 0.04 UNITS/MIN,MADHAVI SYNEPHRINE 40MG IN 250ML NS AT 150 MCG/MIN.W/NGT TO LT NARES INTACT,NO RESIDUALS NOTED, ON NGT FEEDING ORDERED.RT CHEST TUBE INTACT,SMALL SANGUINOUS DRAINAGE NOTED.W/HYDE CATHETER TO BSD NO URINE OUTPUT NOTED.WILL CONTINUE TO CLOSELY MONITOR PT. FAMILY AT BEDSIDE, UPDATED ON PTS PRESENT CONDITION.QUESTIONS ANSWERED
--- NOTE | 2022-01-23 20:15 | NUR ---
ASYSTOLE NOTED ON MONITOR.AWAITING ER MD TO PRONOUNCE PT . FAMILY AWARE.
--- NOTE | 2022-01-23 20:37 | NUR ---
ER MD DR PATTERSON AT BEDSIDE, PRONOUNCED .FAMILY AT BEDSIDE
--- NOTE | 2022-01-23 20:51 | NUR ---
PHONE CALL TO [facility],SPOKE WITH EDEN, QUESTIONS ANSWERED. BODY RELEASED REFERRAL # [id number]
--- NOTE | 2022-01-23 21:00 | NUR ---
PHONE CALL TO [employer] [facility]ICE, SPOKE WITH SARIKA, QUESTIONS ANSWERED.AWAITING CALL BACK FROM [employer] [facility].
--- NOTE | 2022-01-23 21:05 | NUR ---
PURA WAYNE IN THE UNIT,FAMILY WANTS [facility]. WILL CALL MORTUARY SOON BODY IS RELEASED BY [employer].
--- NOTE | 2022-01-23 22:55 | NUR ---
BODY PICKED UP BY [facility]; PHONE CALL TO ROSANA MONTEZ, INFORMED HIM THAT BODY IS ON THE WAY TO [facility].
[2022-01-24] MEDS ORDERED: DOCUSATE 100 MG/10 ML UDC GT SCH (09:00)
== END 2022-01-23 22:55 | DRG 871 ==
LOC: MED 15:38 → MTU 22:31 → MIC 01-13 19:45
PROVIDERS: ADMIT Internal Medicine; ATTEND Internal Medicine
PROC: 02H633Z Insertion of Infusion Device into Right Atrium, Percutaneous Approach (ICD-10-PCS; 2022-01-05)
PROC: 5A09457 Assistance with Respiratory Ventilation, 24-96 Consecutive Hours, Continuous Positive Airway Pressure (ICD-10-PCS; 2022-01-20)
PROC: 0W9930Z Drainage of Right Pleural Cavity with Drainage Device, Percutaneous Approach (ICD-10-PCS; principal; 2022-01-21)
PROC: 5A1945Z Respiratory Ventilation, 24-96 Consecutive Hours (ICD-10-PCS; 2022-01-22)
PROC: 0BH17EZ Insertion of Endotracheal Airway into Trachea, Via Natural or Artificial Opening (ICD-10-PCS; 2022-01-22)
DX: A41.9 Sepsis, unspecified organism (principal); J18.9 Pneumonia, unspecified organism; R65.21 Severe sepsis with septic shock; J96.00 Acute respiratory failure, unspecified whether with hypoxia or hypercapnia; Z68.41 Body mass index [BMI] 40.0-44.9, adult; N17.9 Acute kidney failure, unspecified; J93.9 Pneumothorax, unspecified; N39.0 Urinary tract infection, site not specified; I11.0 Hypertensive heart disease with heart failure; I50.9 Heart failure, unspecified; R74.01 Elevation of levels of liver transaminase levels; E83.42 Hypomagnesemia; E78.00 Pure hypercholesterolemia, unspecified; E78.5 Hyperlipidemia, unspecified; Z20.822 Contact with and (suspected) exposure to COVID-19; E66.01 Morbid (severe) obesity due to excess calories; E87.5 Hyperkalemia; J84.10 Pulmonary fibrosis, unspecified; Z66 Do not resuscitate; E11.9 Type 2 diabetes mellitus without complications; Z87.891 Personal history of nicotine dependence; Z86.73 Personal history of transient ischemic attack (TIA), and cerebral infarction without residual deficits
CPT/HCPCS: 31500; 36415; 36600; 71045; 71275; 76705; 80048; 80053; 80202; 82272; 82803; 82948; 83036; 83516; 83605; 83735; 83880; 84484; 85025; 85379; 86038; 86140; 86430; 86704; 86706; 86708; 86709; 86803; 87040; 87070; 87081; 87086; 87205; 87340; 87635-QW; 89220; 93005; 93970; 93975; 94002; 94003; 94640; 94660; 94664; 96365; 96367; 96375; 99291; C9113; J0456; J0696; J1170; J1450; J1644; J1815; J1940; J2001; J2370; J2543; J2704; J2920; J2930; J3010; J3370; J3490; J7030; J7060; Q0092; Q9967